=== PATIENT | male | born 1940 | race Caucasian/White ===

== ENCOUNTER → 2018-06-14 | Outpatient (CLI) | payer MEDICARE | END | disposition home or self-care (01) | LOC: LABWHC1 17:08 | PROVIDERS: ATTEND Internal Medicine Cardiovascular Disease | DX: R06.02 Shortness of breath (principal); I25.9 Chronic ischemic heart disease, unspecified | CPT/HCPCS: 36415; 71046; 83880; 85379 ==

== ENCOUNTER → 2018-06-14 | Outpatient (CLI) | payer MEDICARE ==
--- NOTE | 2018-06-15 07:06 | XR ---
EXAMINATION TYPE: XR chest 2V DATE OF EXAM: 06/14/2018 COMPARISON: Chest x-ray March 23, 2016. CT chest March 07, 2016. HISTORY: Shortness of breath TECHNIQUE: Frontal and lateral views of the chest are obtained. FINDINGS: There is patchy bibasilar opacities. No pleural effusion or pneumothorax is seen bilateral ly. The cardiac silhouette size is stable and upper limits of normal. The osseous structures are in tact. IMPRESSION: Patchy bibasilar atelectasis and/or infiltrate.
== END | disposition home or self-care (01) ==
LOC: RADXRYALE 16:19
PROVIDERS: ATTEND Internal Medicine Cardiovascular Disease
DX: R06.02 Shortness of breath (principal)
CPT/HCPCS: 71046

== ENCOUNTER → 2018-06-21 | Outpatient (CLI) | payer MEDICARE | END | disposition home or self-care (01) | LOC: LABWHC1 11:34 | PROVIDERS: ATTEND Internal Medicine Cardiovascular Disease | DX: I50.9 Heart failure, unspecified (principal) | CPT/HCPCS: 36415; 83880 ==

== ENCOUNTER → 2018-07-03 | Outpatient (CLI) | payer MEDICARE ==
[2018-07-03 23:07] LABS: Anion Gap 9.1 mmol/L (4.00-12.00); Calcium 8.8 mg/dL (8.7-10.3); Carbon Dioxide 26.9 mmol/L (21.6-31.8); Potassium 4.3 mmol/L (3.5-5.5)
== END | disposition home or self-care (01) ==
LOC: LABWHC1 13:31
PROVIDERS: ATTEND Nurse Practitioner Adult Health
DX: I10 Essential (primary) hypertension (principal)
CPT/HCPCS: 36415; 80048

== ENCOUNTER 2018-08-05 11:37 | Emergency (ER) | payer MEDICARE ==
[2018-08-05 11:54] VITALS: TEMP 97.6
[2018-08-05 12:19] LABS: Basophils % (A) 1 %; Eosinophils # (A) 0.1 k/uL (0-0.7); Eosinophils % (A) 2 %; HCT 38.6 % (39.0-53.0); HGB 12.2 gm/dL (13.0-17.5); Lymphocytes # (A) 0.8 k/uL (1.0-4.8); Lymphocytes % (A) 22 %; MCH 30.4 pg (25.0-35.0); MCHC 31.6 g/dL (31.0-37.0); MCV 96.2 fL (80.0-100.0); Mean Platelet Volume 7.9; Monocytes # (A) 0.3 k/uL (0-1.0); Monocytes % (A) 8 %; Neutrophils # (A) 2.2 k/uL (1.3-7.7); Neutrophils % (A) 63 %; Platelet Count 140 k/uL (150-450); RBC 4.02 m/uL (4.30-5.90); RDW 15.8 % (11.5-15.5); WBC 3.5 k/uL (3.8-10.6)
--- NOTE | 2018-08-05 12:19 | ED ---
General Adult HPI - General Chief complaint: Abdominal Pain Stated complaint: abdominal pain Time Seen by Provider: 08/05/18 11:51 Source: patient, RN notes reviewed Mode of arrival: ambulatory Limitations: no limitations - History of Present Illness Initial comments: 78 year old male presents to the emergency department for a chief complaint of abdominal pain. Patient states this has been ongoing for about 4 days. Patient states it is a sharp pain in his right lower quadrant. Patient states movement makes the pain worse and lying still alleviates the pain. Patient states he has had 2 normal bowel movements the past 3 days. Denies them at a cheesy or melena. Patient denies any nausea or vomiting. Patient states she was seen at [facility] for this but then referred here to the emergency department. He denies fevers or chills.Patient has no other complaints at this time including shortness of breath, chest pain, nausea or vomiting, headache, or visual changes. - Related Data Home Medications Medication Instructions Recorded Confirmed Multivitamin [Men's Multi-Vitamin] 1 tab PO DAILY 07/17/14 03/07/16 Tamsulosin HCl [Flomax] 0.4 mg PO DAILY 03/07/16 03/07/16 Previous Rx's Medication Instructions Recorded Aspirin EC [Ecotrin Low Dose] 81 mg PO DAILY #1 tablet. 10/28/13 Allergies Allergy/AdvReac Type Severity Reaction Status Date / Time clindamycin Allergy Intermediate Rash/Hives Verified 08/05/18 11:46 amoxicillin [Amoxicillin] Allergy Rash/Hives Verified 08/05/18 11:46 gentamicin [Gentamicin] Allergy Rash/Hives Verified 08/05/18 11:46 levofloxacin Allergy Rash/Hives Verified 08/05/18 11:46 sulfamethoxazole Allergy Rash/Hives Verified 08/05/18 11:46 [From Bactrim] trimethoprim [From Bactrim] Allergy Unknown Verified 08/05/18 11:46 vancomycin Allergy Unknown Verified 08/05/18 11:46 Review of Systems ROS Statement: Those systems with pertinent positive or pertinent negative responses have been documented in the HPI. ROS Other: All systems not noted in ROS Statement are negative. Past Medical History Past Medical History: Coronary Artery Disease (CAD), Heart Failure, Deep Vein Thrombosis (DVT), Hyperlipidemia, Osteoarthritis (OA), Pulmonary Embolus (PE), Skin Disorder, Sleep Apnea/CPAP/BIPAP, Vascular Disorder Additional Past Medical History / Comment(s): STENTS, SKIN CA, RHEUMATIC FEVER History of Any Multi-Drug Resistant Organisms: None Reported Past Surgical History: Adenoidectomy, Heart Catheterization With Stent, Tonsillectomy Additional Past Surgical History / Comment(s): skin CA removed from chin 2011, colonoscopy Past Anesthesia/Blood Transfusion Reactions: No Reported Reaction Date of Last Stent Placement:: 2007 Past Psychological History: No Psychological Hx Reported Smoking Status: Never smoker Past Alcohol Use History: None Reported Past Drug Use History: None Reported - Past Family History Father Family Medical History: Congestive Heart Failure (CHF), Coronary Artery Disease (CAD) Additional Family Medical History / Comment(s): CABG Mother Family Medical History: Congestive Heart Failure (CHF), Renal Disease Additional Family Medical History / Comment(s): ANEURSYM General Exam Limitations: no limitations General appearance: alert, in no apparent distress Head exam: Present: atraumatic, normocephalic, normal inspection Eye exam: Present: normal appearance, PERRL, EOMI. Absent: scleral icterus, conjunctival injection, periorbital swelling ENT exam: Present: normal exam, mucous membranes moist Neck exam: Present: normal inspection, full ROM. Absent: tenderness, meningismus, lymphadenopathy Respiratory exam: Present: normal lung sounds bilaterally. Absent: respiratory distress, wheezes, rales, rhonchi, stridor Cardiovascular Exam: Present: regular rate, normal rhythm, normal heart sounds. Absent: systolic murmur, diastolic murmur, rubs, gallop, clicks GI/Abdominal exam: Present: soft, tenderness (Tenderness in the right lower quadrant), normal bowel sounds. Absent: distended, guarding, rebound, rigid Expanded GI/Abdominal exam: Present: Rovsing's sign. Absent: heel tap sign, Stark's sign, tenderness at [place]'s Point Neurological exam: Present: alert, oriented X3, CN II-XII intact Psychiatric exam: Present: normal affect, normal mood Course Vital Signs 08/05/18 11:44 Temperature 97.6 F Pulse Rate 60 Respiratory 16 Rate Blood Pressure 136/73 O2 Sat by Pulse 97 Oximetry - Reevaluation(s) Reevaluation #1: 08/05/18 12:19 Patient refusing pain medicatiosn Medical Decision Making - Medical Decision Making 78-year-old male presents to the emergency department for a chief complaint of right lower quadrant abdominal pain. Patient is mildly tender on exam however nothing significant. No rebound tenderness. No guarding. Vitals are stable. CBC unremarkable, white count is somewhat low at 3.5. Hemoglobin 12.2 is likely patient's baseline as he was 12.93 years ago. CMP shows a creatinine of 1.43, patient given fluids. This is improved from 1.5 about 1 month ago. Discussed the case with test and turn up technician and radiologist Dr. Skaggs who recommends oral contrast versus IV contrast. Urine does not show any evidence of infection. I did discuss finding of renal cysts with patient however at this time I do not see an emergent cause for right lower quadrant abdominal pain. This could be musculoskeletal in nature as pain only occurs in patient moves. However he will follow up with primary care in 1-2 days. He will return hereif he has any wor sening symptoms. - Lab Data Result diagrams: 08/05/18 12:06 08/05/18 12:06 Lab Results 08/05/18 08/05/18 08/05/18 Range/Units 12:06 12:06 12:06 WBC 3.5 L (3.8-10.6) k/uL RBC 4.02 L (4.30-5.90) m/uL Hgb 12.2 L (13.0-17.5) gm/dL Hct 38.6 L (39.0-53.0) % MCV 96.2 (80.0-100.0) fL MCH 30.4 (25.0-35.0) pg MCHC 31.6 (31.0-37.0) g/dL RDW 15.8 H (11.5-15.5) % Plt Count 140 L (150-450) k/uL Neutrophils % 63 % Lymphocytes % 22 % Monocytes % 8 % Eosinophils % 2 % Basophils % 1 % Neutrophils # 2.2 (1.3-7.7) k/uL Lymphocytes # 0.8 L (1.0-4.8) k/uL Monocytes # 0.3 (0-1.0) k/uL Eosinophils # 0.1 (0-0.7) k/uL Basophils # 0.0 (0-0.2) k/uL Sodium 141 (137-145) mmol/L Potassium 4.9 (3.5-5.1) mmol/L Chloride 107 (98-107) mmol/L Carbon Dioxide 25 (22-30) mmol/L Anion Gap 9 mmol/L BUN 23 H (9-20) mg/dL Creatinine 1.43 H (0.66-1.25) mg/dL Est GFR (CKD-EPI)AfAm 55 (>60 ml/min/1.73 sqM) Est GFR (CKD-EPI)NonAf 48 (>60 ml/min/1.73 sqM) Glucose 99 (74-99) mg/dL Calcium 9.2 (8.4-10.2) mg/dL Total Bilirubin 0.9 (0.2-1.3) mg/dL AST 28 (17-59) U/L ALT 22 (21-72) U/L Alkaline Phosphatase 70 (38-126) U/L Total Protein 7.7 (6.3-8.2) g/dL Albumin 4.3 (3.5-5.0) g/dL Amylase 82 (30-110) U/L Lipase 257 (23-300) U/L Urine Color Yellow Urine Appearance Clear (Clear) Urine pH 6.5 (5.0-8.0) Ur Specific [place] 1.017 (1.001-1.035) Urine Protein 3+ H (Negative) Urine Glucose (UA) Negative (Negative) Urine Ketones Negative (Negative) Urine Blood Negative (Negative) Urine Nitrite Negative (Negative) Urine Bilirubin Negative (Negative) Urine Urobilinogen <2.0 (<2.0) mg/dL Ur Leukocyte Esterase Negative (Negative) Urine RBC 1 (0-5) /hpf Urine WBC <1 (0-5) /hpf Hyaline Casts 1 (0-2) /lpf Urine Mucus Rare H (None) /hpf Disposition Clinical Impression: Abdominal pain Disposition: HOME SELF-CARE Condition: Good Instructions (If sedation given, give patient instructions): Abdominal Pain (ED) Additional Instructions: Please follow up with primary care in 1-2 days. Please return here to the emergency department if you have any worsening symptoms. Is patient prescribed a controlled substance at d/c from ED?: No Referrals: Laura Talbert MD [Primary Care Provider] - 1-2 days Time of Disposition: 15:48
[2018-08-05 12:20] LABS: Appearance,Urine Clear (Clear); Bilirubin,Urine Negative (Negative); Blood,Urine Negative (Negative); Color,Urine Yellow; Glucose,Urine (UA) Negative (Negative); Hyaline Casts,Urine 1 /lpf (0-2); Ketones,Urine Negative (Negative); Leukocyte Esterase,Urine Negative (Negative); Mucus,Urine Rare /hpf; Nitrite,Urine Negative (Negative); PH, Urine 6.5 (5.0-8.0); Protein,Urine 3+ (Negative); RBC,Urine 1 /hpf (0-5); Specific Gravity,Urine 1.017 (1.001-1.035); Urobilinogen,Urine <2.0 mg/dL (<2.0); WBC,Urine <1 /hpf (0-5)
[2018-08-05 12:37] LABS: Albumin 4.3 g/dL (3.5-5.0); Calcium 9.2 mg/dL (8.4-10.2); Potassium 4.9 mmol/L (3.5-5.1); Total Bilirubin 0.9 mg/dL (0.2-1.3); Total Protein 7.7 g/dL (6.3-8.2)
[2018-08-05] MEDS ORDERED: SODIUM CHLORIDE 0.9% 1,000 ML IV STA (12:39)
--- NOTE | 2018-08-05 15:00 | CT ---
EXAMINATION TYPE: CT abdomen pelvis wo con DATE OF EXAM: 08/05/2018 COMPARISON: None HISTORY: Generalized abdominal pain CT DLP: 1015.4 mGycm Automated exposure control for dose reduction was used. TECHNIQUE: Helical acquisition of images was performed from the lung bases through the pelvis. There is oral contrast only. FINDINGS: There is subsegmental atelectasis at the lung bases. There is no pericardial effusion. Heart size is fairly normal. Liver shows no focal defect. Gallbladder appears normal. Bile ducts are not dilated. Stomach appears normal. Spleen and pancreas appear normal. There is no adrenal mass. Kidneys have normal size. There is no hydronephrosis. There are renal corti silvia cysts that measure up to 2 cm. There is no evidence of a solid renal mass. Ureters are not dilate d. There is no retroperitoneal adenopathy. Abdominal aorta is atheromatous. Bladder distends smoothly. There is no inguinal hernia. There is no free fluid in the pelvis. There i s no evidence of a pelvic mass. Prostate is large and measures 5.5 cm. The appendix appears normal. There is no mesenteric edema. There is no ascites or free air. There is no evidence of a bowel obstru ction. There are hypertrophic mild degenerative changes in the lumbar spine. I see no bony destructive proce ss. Bony pelvis is intact. There are degenerative cysts in the left and right acetabulum. IMPRESSION: RENAL CORTICAL CYSTS. NORMAL APPENDIX. I DO NOT SEE A CAUSE FOR ABDOMINAL PAIN.
[2018-08-05 16:20] VITALS: BP 153/85; PULSE 68; RESP 18
== END 2018-08-05 16:18 | disposition home or self-care (01) ==
LOC: EC 11:37
DX: R10.31 Right lower quadrant pain (principal); I50.9 Heart failure, unspecified; I25.10 Atherosclerotic heart disease of native coronary artery without angina pectoris; G47.30 Sleep apnea, unspecified; Z99.89 Dependence on other enabling machines and devices; Z85.828 Personal history of other malignant neoplasm of skin; Z86.718 Personal history of other venous thrombosis and embolism; Z86.711 Personal history of pulmonary embolism; Z79.899 Other long term (current) drug therapy; Z88.0 Allergy status to penicillin; Z88.1 Allergy status to other antibiotic agents; Z88.2 Allergy status to sulfonamides; Z95.5 Presence of coronary angioplasty implant and graft
CPT/HCPCS: 36415; 74176; 80053; 81001; 82150; 83690; 85025; 96360; 96361; 99284

== ENCOUNTER 2018-09-01 16:11 | Inpatient (IN) | payer MEDICARE ==
[2018-09-01] MEDS ORDERED: SODIUM CHLORIDE 0.9% 1,000 ML IV STA ×2 (16:23→17:50)
[2018-09-01] MEDS ORDERED: SODIUM CHLORIDE 0.9% 500 ML 500 ML IV STA ×2 (16:27→17:50)
--- NOTE | 2018-09-01 16:35 | ED ---
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 He denies any pain. He has had increased swelling in his right lower extremity compared to his usual amount. He was cold and shivering using Donald before arrival EMS found her called his son have a pulse ox 91% on room air was up to 97 on 2 L of oxygen. Accu-Chek was demonstrating adequate glucose. Right now he feels back to normal he denied any palpitations chest pain dysuria hematuria he does state he has some right-sided abdominal pain he's had this since about a week ago. He had workup for abdominal pain which is negative. Has right-sided pain. Additionally the patient was outside in the sun today working planting plants. He does state he had a Sunscreen on this may be part of what happened today. No other modifying factors currently MD Complaint: generalized weakness - Related Data Home Medications Medication Instructions Recorded Confirmed Advanced Nerve Support 1 tab PO DAILY 09/01/18 09/01/18 Ascorbic Acid [Vitamin C] 1,000 mg PO DAILY 09/01/18 09/01/18 Cholecalciferol [Vitamin D3 (25 5,000 unit PO DAILY 09/01/18 09/01/18 Mcg = 1000 Iu)] Florassist-Nasal 1 tab PO DAILY 09/01/18 09/01/18 Glucosamine/Chondr Saleh A Sod [Osteo 1 tab PO DAILY 09/01/18 09/01/18 Bi-Flex Caplet] Multivitamins, Thera [Multivitamin 1 tab PO DAILY 09/01/18 09/01/18 (formulary)] Naproxen Sodium [Aleve] 440 mg PO Q12HR PRN 09/01/18 09/01/18 [place] 500 mg PO DAILY 09/01/18 09/01/18 Allergies Allergy/AdvReac Type Severity Reaction Status Date / Time clindamycin Allergy Intermediate Rash/Hives Verified 09/01/18 17:36 amoxicillin [Amoxicillin] Allergy Rash/Hives Verified 09/01/18 17:36 gentamicin [Gentamicin] Allergy Rash/Hives Verified 09/01/18 17:36 levofloxacin Allergy Rash/Hives Verified 09/01/18 17:36 sulfamethoxazole Allergy Rash/Hives Verified 09/01/18 17:36 [From Bactrim] trimethoprim [From Bactrim] Allergy Unknown Verified 09/01/18 17:36 vancomycin Allergy Unknown Verified 09/01/18 17:36 Review of Systems ROS Statement: Those systems with pertinent positive or pertinent negative responses have been documented in the HPI. ROS Other: All systems not noted in ROS Statement are negative. Past Medical History Past Medical History: Coronary Artery Disease (CAD), Heart Failure, Deep Vein Thrombosis (DVT), Hyperlipidemia, Osteoarthritis (OA), Pulmonary Embolus (PE), Skin Disorder, Sleep Apnea/CPAP/BIPAP, Vascular Disorder Additional Past Medical History / Comment(s): STENTS, SKIN CA, RHEUMATIC FEVER History of Any Multi-Drug Resistant Organisms: None Reported Past Surgical History: Adenoidectomy, Heart Catheterization With Stent, Tonsillectomy Additional Past Surgical History / Comment(s): skin CA removed from chin 2011, colonoscopy Past Anesthesia/Blood Transfusion Reactions: No Reported Reaction Date of Last Stent Placement:: 2007 Past Psychological History: No Psychological Hx Reported Smoking Status: Never smoker Past Alcohol Use History: None Reported Past Drug Use History: None Reported - Past Family History Father Family Medical History: Congestive Heart Failure (CHF), Coronary Artery Disease (CAD) Additional Family Medical History / Comment(s): CABG Mother Family Medical History: Congestive Heart Failure (CHF), Renal Disease Additional Family Medical History / Comment(s): ANEURSYM General Exam - General Exam Comments Initial Comments: This is a well-developed well-nourished awake alert oriented 3 male General appearance: alert, in no apparent distress Head exam: Present: atraumatic, normocephalic, normal inspection Eye exam: Present: normal appearance, PERRL, EOMI. Absent: scleral icterus, conjunctival injection, periorbital swelling ENT exam: Present: mucous membranes dry Neck exam: Present: normal inspection, full ROM, other (Neurosurgery or bruits). Absent: tenderness, meningismus, lymphadenopathy Respiratory exam: Present: normal lung sounds bilaterally. Absent: respiratory distress, wheezes, rales, rhonchi, stridor Cardiovascular Exam: Present: regular rate, normal rhythm, normal heart sounds. Absent: systolic murmur, diastolic murmur, rubs, gallop, clicks GI/Abdominal exam: Present: soft, tenderness (Tenderness palpation over the right and left lower quadrants no overt guarding), normal bowel sounds. Absent: distended, guarding, rebound, rigid, bruit, pulsatile mass Rectal exam: Present: deferred Extremities exam: Present: normal inspection, full ROM, normal capillary refill, pedal edema (Edema more so on the right than the left.), other (Erythema seen to the right lower extremity with some increased localized temperature this is not too much different than normal per family members.). Absent: joint swelling, calf tenderness Back exam: Present: normal inspection Neurological exam: Present: alert, oriented X3, CN II-XII intact Psychiatric exam: Present: normal affect, normal mood Skin exam: Present: warm, dry, intact, normal color. Absent: rash Course Vital Signs 09/01/18 09/01/18 09/01/18 16:19 16:30 17:28 Temperature 99.6 F 102.5 F H Pulse Rate 121 H 124 H Respiratory 25 H 18 20 Rate Blood Pressure 115/68 O2 Sat by Pulse 93 L 98 Oximetry - Reevaluation(s) Reevaluation #1: 09/01/18 19:06 Reevaluation patient reveals improvement in his blood pressure positional changes. He did get IV fluids with a correct the pressure as well as a heart rate. He did develop a fever during his time here EKG Findings - EKG Results: EKG: interpreted by RENATO, sinus rhythm (Sinus tachycardia rate 119. Interval 154 QRS duration 76 QT since QTC 306/4:[address]-T wave changes) Medical Decision Making - Medical Decision Making I did discuss findings the patient and family members as well as Dr. Guerin patient will be admitted for anticoagulation scan is ordered. She'll be started on antibiotics at this time. - Lab Data Result diagrams: 09/01/18 16:42 09/01/18 16:42 Lab Results 09/01/18 09/01/18 09/01/18 Range/Units 16:42 16:42 16:42 WBC 11.8 H (3.8-10.6) k/uL RBC 3.75 L (4.30-5.90) m/uL Hgb 11.5 L (13.0-17.5) gm/dL Hct 35.6 L (39.0-53.0) % MCV 94.9 (80.0-100.0) fL MCH 30.7 (25.0-35.0) pg MCHC 32.3 (31.0-37.0) g/dL RDW 15.3 (11.5-15.5) % Plt Count 122 L (150-450) k/uL Neutrophils % (Manual) 74 % Band Neutrophils % 24 % Lymphocytes % (Manual) 2 % Metamyelocytes % 1 % Neutrophils # (Manual) 11.50 H (1.3-7.7) k/uL Lymphocytes # (Manual) 0.24 L (1.0-4.8) k/uL Metamyelocytes # (Man) 0.12 H (0) k/uL Nucleated RBCs 0 (0-0) /100 WBC Manual Slide Review Performed Toxic Vacuolation Present PT (9.0-12.0) sec INR (<1.2) APTT (22.0-30.0) sec D-Dimer (<0.60) mg/L FEU Sodium 140 (137-145) mmol/L Potassium 4.4 (3.5-5.1) mmol/L Chloride 108 H (98-107) mmol/L Carbon Dioxide 22 (22-30) mmol/L Anion Gap 10 mmol/L BUN 24 H (9-20) mg/dL Creatinine 1.59 H (0.66-1.25) mg/dL Est GFR (CKD-EPI)AfAm 48 (>60 ml/min/1.73 sqM) Est GFR (CKD-EPI)NonAf 42 (>60 ml/min/1.73 sqM) Glucose 104 H (74-99) mg/dL Plasma Lactic Acid Pablo (0.7-2.0) mmol/L Calcium 8.9 (8.4-10.2) mg/dL Magnesium 1.6 (1.6-2.3) mg/dL Total Bilirubin 0.9 (0.2-1.3) mg/dL AST 27 (17-59) U/L ALT 15 L (21-72) U/L Alkaline Phosphatase 60 (38-126) U/L Creatine Kinase 55 (55-170) U/L Troponin I (0.000-0.034) ng/mL NT-Pro-B Natriuret Pep pg/mL Total Protein 6.6 (6.3-8.2) g/dL Albumin 3.6 (3.5-5.0) g/dL Urine Color Yellow Urine Appearance Clear (Clear) Urine pH 5.5 (5.0-8.0) Ur Specific [place] 1.018 (1.001-1.035) Urine Protein 2+ H (Negative) Urine Glucose (UA) Negative (Negative) Urine Ketones Negative (Negative) Urine Blood Negative (Negative) Urine Nitrite Negative (Negative) Urine Bilirubin Negative (Negative) Urine Urobilinogen <2.0 (<2.0) mg/dL Ur Leukocyte Esterase Negative (Negative) Urine RBC 1 (0-5) /hpf Urine WBC 2 (0-5) /hpf Ur Squamous Epith Cells 1 (0-4) /hpf Hyaline Casts 7 H (0-2) /lpf Urine Mucus Occasional H (None) /hpf 09/01/18 09/01/18 09/01/18 Range/Units 16:42 16:42 16:42 WBC (3.8-10.6) k/uL RBC (4.30-5.90) m/uL Hgb (13.0-17.5) gm/dL Hct (39.0-53.0) % MCV (80.0-100.0) fL MCH (25.0-35.0) pg MCHC (31.0-37.0) g/dL RDW (11.5-15.5) % Plt Count (150-450) k/uL Neutrophils % (Manual) % Band Neutrophils % % Lymphocytes % (Manual) % Metamyelocytes % % Neutrophils # (Manual) (1.3-7.7) k/uL Lymphocytes # (Manual) (1.0-4.8) k/uL Metamyelocytes # (Man) (0) k/uL Nucleated RBCs (0-0) /100 WBC Manual Slide Review Toxic Vacuolation PT 10.4 (9.0-12.0) sec INR 1.0 (<1.2) APTT 22.6 (22.0-30.0) sec D-Dimer (<0.60) mg/L FEU Sodium (137-145) mmol/L Potassium (3.5-5.1) mmol/L Chloride (98-107) mmol/L Carbon Dioxide (22-30) mmol/L Anion Gap mmol/L BUN (9-20) mg/dL Creatinine (0.66-1.25) mg/dL Est GFR (CKD-EPI)AfAm (>60 ml/min/1.73 sqM) Est GFR (CKD-EPI)NonAf (>60 ml/min/1.73 sqM) Glucose (74-99) mg/dL Plasma Lactic Acid Pablo 2.4 H* (0.7-2.0) mmol/L Calcium (8.4-10.2) mg/dL Magnesium (1.6-2.3) mg/dL Total Bilirubin (0.2-1.3) mg/dL AST (17-59) U/L ALT (21-72) U/L Alkaline Phosphatase (38-126) U/L Creatine Kinase (55-170) U/L Troponin I (0.000-0.034) ng/mL NT-Pro-B Natriuret Pep 480 pg/mL Total Protein (6.3-8.2) g/dL Albumin (3.5-5.0) g/dL Urine Color Urine Appearance (Clear) Urine pH (5.0-8.0) Ur Specific [place] (1.001-1.035) Urine Protein (Negative) Urine Glucose (UA) (Negative) Urine Ketones (Negative) Urine Blood (Negative) Urine Nitrite (Negative) Urine Bilirubin (Negative) Urine Urobilinogen (<2.0) mg/dL Ur Leukocyte Esterase (Negative) Urine RBC (0-5) /hpf Urine WBC (0-5) /hpf Ur Squamous Epith Cells (0-4) /hpf Hyaline Casts (0-2) /lpf Urine Mucus (None) /hpf 09/01/18 09/01/18 Range/Units 16:42 16:42 WBC (3.8-10.6) k/uL RBC (4.30-5.90) m/uL Hgb (13.0-17.5) gm/dL Hct (39.0-53.0) % MCV (80.0-100.0) fL MCH (25.0-35.0) pg MCHC (31.0-37.0) g/dL RDW (11.5-15.5) % Plt Count (150-450) k/uL Neutrophils % (Manual) % Band Neutrophils % % Lymphocytes % (Manual) % Metamyelocytes % % Neutrophils # (Manual) (1.3-7.7) k/uL Lymphocytes # (Manual) (1.0-4.8) k/uL Metamyelocytes # (Man) (0) k/uL Nucleated RBCs (0-0) /100 WBC Manual Slide Review Toxic Vacuolation PT (9.0-12.0) sec INR (<1.2) APTT (22.0-30.0) sec D-Dimer 3.88 H (<0.60) mg/L FEU Sodium (137-145) mmol/L Potassium (3.5-5.1) mmol/L Chloride (98-107) mmol/L Carbon Dioxide (22-30) mmol/L Anion Gap mmol/L BUN (9-20) mg/dL Creatinine (0.66-1.25) mg/dL Est GFR (CKD-EPI)AfAm (>60 ml/min/1.73 sqM) Est GFR (CKD-EPI)NonAf (>60 ml/min/1.73 sqM) Glucose (74-99) mg/dL Plasma Lactic Acid Pablo (0.7-2.0) mmol/L Calcium (8.4-10.2) mg/dL Magnesium (1.6-2.3) mg/dL Total Bilirubin (0.2-1.3) mg/dL AST (17-59) U/L ALT (21-72) U/L Alkaline Phosphatase (38-126) U/L Creatine Kinase (55-170) U/L Troponin I <0.012 (0.000-0.034) ng/mL NT-Pro-B Natriuret Pep pg/mL Total Protein (6.3-8.2) g/dL Albumin (3.5-5.0) g/dL Urine Color Urine Appearance (Clear) Urine pH (5.0-8.0) Ur Specific [place] (1.001-1.035) Urine Protein (Negative) Urine Glucose (UA) (Negative) Urine Ketones (Negative) Urine Blood (Negative) Urine Nitrite (Negative) Urine Bilirubin (Negative) Urine Urobilinogen (<2.0) mg/dL Ur Leukocyte Esterase (Negative) Urine RBC (0-5) /hpf Urine WBC (0-5) /hpf Ur Squamous Epith Cells (0-4) /hpf Hyaline Casts (0-2) /lpf Urine Mucus (None) /hpf - Radiology Data Radiology results: report reviewed (I did review the imaging and reports x-rays negative for acute findings ultrasound is positive for DVT in right lower extremity.), image reviewed Critical Care Time Critical Care Time: Yes Critical Care Time: 31 minutes of critical care time which includes initial presentation with history physical labs x-rays several reevaluation the patient. Discussion the patient family and several occasions. Discussion with the admitting physician review of old charting was available admission orders and documentation of the above Disposition Clinical Impression: Deep vein thrombosis (DVT) of right lower extremity, Febrile illness, acute, Dehydration, Renal insufficiency syndrome, Cellulitis Disposition: ADMITTED IP TO THIS [facility] Condition: Fair Referrals: Laura Talbert MD [Primary Care Provider] - 1-2 days
[2018-09-01 17:00] LABS: HCT 35.6 % (39.0-53.0); HGB 11.5 gm/dL (13.0-17.5); MCH 30.7 pg (25.0-35.0); MCHC 32.3 g/dL (31.0-37.0); MCV 94.9 fL (80.0-100.0); Mean Platelet Volume 7.3; Platelet Count 122 k/uL (150-450); RBC 3.75 m/uL (4.30-5.90); RDW 15.3 % (11.5-15.5); WBC 11.8 k/uL (3.8-10.6)
[2018-09-01 17:04] LABS: Albumin 3.6 g/dL (3.5-5.0); Calcium 8.9 mg/dL (8.4-10.2); Magnesium 1.6 mg/dL (1.6-2.3); Potassium 4.4 mmol/L (3.5-5.1); Total Bilirubin 0.9 mg/dL (0.2-1.3); Total Protein 6.6 g/dL (6.3-8.2)
[2018-09-01 17:06] LABS: Appearance,Urine Clear (Clear); Bilirubin,Urine Negative (Negative); Blood,Urine Negative (Negative); Color,Urine Yellow; Glucose,Urine (UA) Negative (Negative); Hyaline Casts,Urine 7 /lpf (0-2); Ketones,Urine Negative (Negative); Leukocyte Esterase,Urine Negative (Negative); Mucus,Urine Occasional /hpf; Nitrite,Urine Negative (Negative); PH, Urine 5.5 (5.0-8.0); Protein,Urine 2+ (Negative); RBC,Urine 1 /hpf (0-5); Specific Gravity,Urine 1.018 (1.001-1.035); Squamous Epithelial Cell,Urine 1 /hpf (0-4); Urobilinogen,Urine <2.0 mg/dL (<2.0); WBC,Urine 2 /hpf (0-5)
[2018-09-01 17:11] LABS: Partial Thromboplastin Time 22.6 sec (22.0-30.0); Prothrombin Time 10.4 sec (9.0-12.0)
--- NOTE | 2018-09-01 17:33 | XR ---
EXAMINATION TYPE: XR chest 2V DATE OF EXAM: 09/01/2018 COMPARISON: 06/14/2018 HISTORY: Short of breath TECHNIQUE: Frontal and lateral views of the chest are obtained. FINDINGS: Heart and mediastinum are normal. Lungs are clear. Costophrenic angles are clear. Bony tho rax is intact. There are chest leads. IMPRESSION: No active cardiopulmonary disease. Normal heart. No change.
[2018-09-01 17:35] LABS: Band Neutrophils % 24 %; Lymphocytes # (M) 0.24 k/uL (1.0-4.8); Metamyelocytes # (M) 0.12 k/uL (0); Metamyelocytes % 1 %; Neutrophils % (M) 74 %; Nucleated Red Blood Cells 0 /100 WBC (0-0); Total Cells Counted 200; Toxic Vacuolation Present
[2018-09-01] MEDS ORDERED: ACETAMINOPHEN TAB 500 MG TAB PO STA (17:54)
--- NOTE | 2018-09-01 18:49 | US ---
EXAMINATION TYPE: US venous doppler duplex LE RT DATE OF EXAM: 09/01/2018 6:39 PM COMPARISON: CLINICAL HISTORY: Pain. right leg swelling since thanksgiving. PE x 3 years ago per patient. No marilyn n. SIDE PERFORMED: Right TECHNIQUE: The lower extremity deep venous system is examined utilizing real time linear array sonog aylsia with graded compression, doppler sonography and color-flow sonography. VESSELS IMAGED: External Iliac Vein (EIV) Common Femoral Vein Deep Femoral Vein Greater Saphenous Vein * Femoral Vein Popliteal Vein Small Saphenous Vein *- not visualized Proximal Calf Veins- not well visualized (* superficial vessels) suboptimal visualization due to edema Right Leg: Appears POSITIVE for DVT from Femoral vein to Proximal calf veins. Thready flow and part ial compressions. 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
[2018-09-01] MEDS ORDERED: cefTRIAXone IN SWFI 1,000 MG/10 ML SYRINGE IVP STA (19:09)
[2018-09-01] MEDS ORDERED: ACETAMINOPHEN TAB 325 MG TAB PO PRN (19:10)
[2018-09-01] MEDS ORDERED: NALOXONE 0.4 MG/ML 1 ML VIAL IV PRN (19:10)
[2018-09-01] MEDS ORDERED: HEPARIN SODIUM,PORCINE 5,000 UNIT/ML 1 ML VIAL IV PRN (19:12)
[2018-09-01] MEDS ORDERED: HEPARIN SODIUM,PORCINE 10,000 UNIT/ML 1 ML VIAL IV ONE (19:12)
[2018-09-01] MEDS: HEPARIN SOD,PORK IN 0.45% NACL 25,000 UNIT in 0.45% NACL 1 250ML.BAG IV SCH (20:11)
--- NOTE | 2018-09-01 21:18 | NM ---
EXAMINATION TYPE: NM pul vent and perfuse DATE OF EXAM: 09/01/2018 COMPARISON: 03/23/2016 HISTORY: TECHNIQUE: Utilizing inhalation of 68.2 mCi Tc 99m DTPA aerosol and intravenous injection of 5.3 mCi of Tc 99m MAA, ventilation and perfusion images are acquired post injection in multiple projections. FINDINGS: There is mild clumping of the tracer on the ventilation images centrally. There is matching ventilati on/perfusion defect at the lateral left lung base. There is no mismatch. There is no segmental type d efect. IMPRESSION: There is evidence of airway disease. Matching defect left lower lobe. There is a low probability of p ulmonary embolism. No adverse change overall compared to last exam.
[2018-09-01] MEDS: FAMOTIDINE 20 MG TAB PO SCH (22:03)
[2018-09-01 22:14] VITALS: BMI 35.4
[2018-09-01] MEDS ORDERED: TEMAZEPAM 15 MG CAP PO PRN (22:49)
[2018-09-01] MEDS ORDERED: ALPRAZolam 0.25 MG TAB PO PRN (22:49)
[2018-09-02] MEDS ORDERED: SODIUM CHLORIDE 0.9% 500 ML 500 ML IV ONE (00:14)
--- NOTE | 2018-09-02 06:30 | HP ---
HISTORY AND PHYSICAL DATE OF SERVICE: 09/01/2018 CHIEF COMPLAINT: Right leg swelling and as well as generalized weakness and fever. HISTORY OF PRESENT ILLNESS: This 78-year-old gentleman with a past medical history of multiple medical problems including history of coronary disease, history of DVT, CHF, history of hyperlipidemia, history of pulmonary embolism, history of vascular disorder, history of adenoidectomy, CAD, stent being followed by Dr. Talbert in the outpatient setting, had a previous massive pulmonary embolism in the right pulmonary artery. Subsequently the patient also had right leg DVT at that time. The patient subsequently was started on Xarelto, which the patient has stopped 2 years ago because the patient is concerned about complications. Currently the patient has multiple complaints and generalized weakness, right leg pain. Patient apparently passed out and had a fall also. The patient came to [facility]. The patient is also running fever also. The patient had multiple evaluations and white count is 11.8 and lactic acid is 2.4. Creatinine is 1.59. UA was noted. The patient also had multiple evaluations including venous ultrasound which showed possibly right leg acute DVT and the patient was admitted for further evaluation and treatment. There is no history of fever, rigors. No history of headache, loss of consciousness, seizures. The patient also had pulmonary perfusion scan which showed low probability V/Q scan. There is no history of headache, loss of consciousness or seizures. PAST MEDICAL HISTORY: History of CAD, CHF, DVT, hyperlipidemia, history of DJD, pulmonary embolism, possible endocarditis, CAD stent. MEDICATION: Home medications prior to admission include: 1. Saw palmetto 500 mg p.o. daily. 2. Aleve 440 mg p.o. b.i.d. 3. Osteo Bi-Flex 1 tablet p.o. daily. 4. Fioricet 1 tablet p.o. daily. 5. Vitamin D3 5000 daily. 6. Advanced support 1 tablet p.o. daily. 7. Multivitamins one p.o. daily. 8. Vitamin C 1000 mg p.o. daily. ALLERGIES: CLINDAMYCIN, AMOXICILLIN, GENTAMICIN, LEVAQUIN, SULFAMETHOXAZOLE, TRIMETHOPRIM, VANCOMYCIN. FAMILY HISTORY: History of CHF, CAD, hemodialysis. SOCIAL HISTORY: No history of smoking. No history of alcohol intake. REVIEW OF SYSTEMS: ENT: No diminished vision. No diminished hearing. CARDIOVASCULAR: No angina or palpitations. RESPIRATORY: As mentioned earlier. GI no nausea or vomiting. no dysuria. NERVOUS SYSTEM: No numbness, weakness. ALLERGIES/IMMUNOLOGY: No asthma or hayfever. MUSCULOSKELETAL as mentioned earlier. HEMATOLOGY/ONCOLOGY: As mentioned earlier. ENDOCRINE: No history of diabetes or hypothyroid. CONSTITUTIONAL: As mentioned earlier. DERMATOLOGY: Negative. RHEUMATOLOGY: Negative. PSYCHIATRY: As mentioned earlier. PHYSICAL EXAMINATION: GENERAL: Alert oriented x3. VITAL SIGNS: Pulse 78, blood pressure 87/40, respiration 18, temperature 98.3, pulse ox 98% on 2 L. HEENT: Conjunctivae normal. Oral mucosa moist. NECK is no jugular venous distention. No carotid bruit. No lymph node enlargement. CARDIOVASCULAR: S1, S2 muffled. No S3, no S4. RESPIRATORY: Breath sounds diminished in the bases. A few scattered rhonchi and crackles. ABDOMEN: Soft, nontender. No mass palpable. LEGS: Right leg swelling present. NERVOUS SYSTEM: Higher functions as mentioned earlier. Moves all 4 limbs. No focal motor or sensory deficits. LYMPHATICS: No lymph nodes palpable in the neck, axillae or groin. SKIN no ulcer, rash or bleeding. JOINTS: No active deforming arthropathy. LABS: WBC 11.2, hemoglobin 11.5, otherwise platelets 122, creatinine 1.59. Plasma lactic acid 2.4. ASSESSMENT: 1. Right leg swelling, acute right leg deep vein thrombosis. 2. Generalized weakness and fever and relative hypotension possible sepsis. 3. Renal failure possible acute renal failure with acute tubular necrosis. 4. Elevated plasma lactic acid. 5. Elevated D-dimer with no evidence of pulmonary embolism. 6. Increased WBC. 7. Anemia. 8. Thrombocytopenia. 9. History of pulmonary embolism and as well as deep vein thrombosis. 10.History of coronary artery disease stent. 11.History of hyperlipidemia. 12.History of degenerative joint disease. 13.History of sleep apnea. 14.History of adenoidectomy. 15.Obesity with body mass of 35.4. 16.NO CODE NO CPR, NO VENT. RECOMMENDATIONS AND DISCUSSION: This 78-year-old gentleman who presented with multiple complex medical issues, we will monitor the patient closely, continue the current medications, management and symptomatic treatment. We will initiate IV heparin. Broad-spectrum IV antibiotics. Follow the cultures. I would also recommend IV boluses. Hold blood pressure medications and I would also recommend consultation with Hematology/Oncology and as well as Dr. Johnson of Infectious Disease. The prognosis guarded. Further recommendations to follow. A baseline 2D echo also will be ordered. Further recommendations to follow. Prognosis guarded. A copy of dictation being forwarded to Dr. Talbert, who is the primary physician. MMODL / KINGSN: [id number] / MTDD
[2018-09-02 08:30] LABS: Anisocytosis Slight; Basophils # (A) 0.1 k/uL (0-0.2); Basophils % (A) 1 %; Eosinophils # (A) 0.2 k/uL (0-0.7); Eosinophils % (A) 2 %; HCT 30.7 % (39.0-53.0); HGB 10.3 gm/dL (13.0-17.5); Lymphocytes # (A) 0.2 k/uL (1.0-4.8); Lymphocytes % (A) 2 %; MCHC 33.5 g/dL (31.0-37.0); MCV 95.5 fL (80.0-100.0); Mean Platelet Volume 8.3; Monocytes # (A) 0.3 k/uL (0-1.0); Monocytes % (A) 2 %; Neutrophils # (A) 10.4 k/uL (1.3-7.7); Neutrophils % (A) 93 %; Platelet Count 106 k/uL (150-450); RBC 3.21 m/uL (4.30-5.90); RDW 16.3 % (11.5-15.5); WBC 11.2 k/uL (3.8-10.6)
[2018-09-02 08:58] LABS: Calcium 7.9 mg/dL (8.4-10.2); Potassium 4.8 mmol/L (3.5-5.1)
[2018-09-02] MEDS ORDERED: NON-FORMULARY DRUG (Saw Palmetto [Saw Palmetto] 500 MG) PO SCH (09:00)
[2018-09-02] MEDS ORDERED: NON-FORMULARY DRUG (Glucosamine/Chondr Su A Sod [Osteo Bi-Flex Caplet] 1 TAB) PO SCH (09:00)
[2018-09-02] MEDS ORDERED: cefTRIAXone IN SWFI 1,000 MG/10 ML SYRINGE IVP SCH (09:00)
[2018-09-02] MEDS ORDERED: [UNRECOGNIZED DRUG - OTHER] PO SCH (09:00)
[2018-09-02] MEDS ORDERED: [UNRECOGNIZED DRUG - OTHER] PO SCH (09:00)
[2018-09-02] MEDS: HEPARIN SOD,PORK IN 0.45% NACL 25,000 UNIT in 0.45% NACL 1 250ML.BAG IV SCH ×3 (09:31→23:52)
[2018-09-02] MEDS: FAMOTIDINE 20 MG TAB PO SCH (09:32)
[2018-09-02] MEDS: MULTIVITAMINS, THERA 1 EACH TAB PO SCH (09:32)
[2018-09-02] MEDS: ASCORBIC ACID 500 MG TAB PO SCH (09:32)
[2018-09-02] MEDS: CHOLECALCIFEROL 1,000 UNIT TAB PO SCH (09:33)
[2018-09-02 12:18] LABS: Glucose,Whole Blood 109 mg/dL (75-99)
[2018-09-02] MEDS ORDERED: MAGNESIUM HYDROXIDE 2,400 MG/10 ML CUP PO PRN (12:32)
--- NOTE | 2018-09-02 14:02 | XR ---
EXAMINATION TYPE: XR chest 1V portable DATE OF EXAM: 09/02/2018 HISTORY: chf. REFERENCE: Previous study dated 09/01/2018. FINDINGS: Heart size upper limits of normal. The lungs are clear. Pleural spaces are clear. IMPRESSION: BORDERLINE CARDIOMEGALY.
--- NOTE | 2018-09-02 15:14 | P.CONS ---
History of Present Illness - Reason for Consult Consult date: 09/02/18 RLE DVT, prior history DVT/PE - History of Present Illness The patient is a 78-year-old white male with multiple medical problems. The patient was admitted this time, because he states that after working in his yard in the son, he felt quite weak and tired. He subsequently became quite shaky and felt as if he was going to pass out. According to his , they're daughter noticed that his lips in the tips of his finger seem to be "blue". EMS was called and he was brought to the emergency room. Cardiac workup was n egative. Patient was ultimately found to have a fever of 102+. He was therefore admitted for further management. He had a prior history of DVT and PE due to which he had a V/Q scan done. This showed low probability for PE. He did have right lower extremity swelling, which has been chronic since a prior DVT in 10/07. Doppler's indicated DVT involving the femoral down into the popliteal veins. This appeared to be chronic with partial compression and thready flow. The patient was started on IV heparin and consult placed. Regarding his prior history, the patient was admitted in 10/07 for chest pain and shortness of breath and was found to have a major pulmonary embolism in the right lung. At that time he was also found to have a right femoral DVT. The patient was treated with Xarelto for several months, but then stopped it as he was concerned about side effects. The patient had repeat imaging in 03/11, including CTA and Doppler showed resolution of both the PE and DVT. He did not recall any provoking events for his prior DVT, or for this present one The patient is a somewhat poor historian, in significant amount of the history was obtained from his . She stated that while the right lower extremity does tend to be somewhat bigger since 2013, it had been more swollen chronically since about 02/11. The patient had come into the emergency room in early 08/12 complaining of right lower quadrant abdominal pain. CT of the abdomen and pelvis was negative at the time and he was able to be discharged. Review of Systems Constitutional: Reports chills, Reports fever, Reports weakness Eyes: denies blurred vision, denies pain Ears: deny: decreased hearing, ear discharge, earache, tinnitus Ears, nose, mouth and throat: Denies headache, Denies sore throat Cardiovascular: Reports shortness of breath Respiratory: Reports dyspnea Gastrointestinal: Denies abdominal pain, Denies diarrhea, Denies nausea, Denies vomiting Genitourinary: Reports as per HPI Musculoskeletal: Reports as per HPI (Chronic right lower extremity swelling, with increase since 02/11) Integumentary: Denies pruritus, Denies rash Neurological: Reports weakness Psychiatric: Denies anxiety, Denies depression Endocrine: Denies fatigue, Denies weight change Hematologic/Lymphatic: Reports as per HPI, Reports thrombophilia Past Medical History Past Medical History: Coronary Artery Disease (CAD), Heart Failure, Deep Vein Thrombosis (DVT), Hyperlipidemia, Osteoarthritis (OA), Pulmonary Embolus (PE), Skin Disorder, Sleep Apnea/CPAP/BIPAP, Vascular Disorder Additional Past Medical History / Comment(s): STENTS, SKIN CA, RHEUMATIC FEVER , abdominal hernia History of Any Multi-Drug Resistant Organisms: None Reported Past Surgical History: Adenoidectomy, Heart Catheterization With Stent, Tonsillectomy Additional Past Surgical History / Comment(s): skin CA removed from chin 2011, colonoscopy Past Anesthesia/Blood Transfusion Reactions: No Reported Reaction Date of Last Stent Placement:: 2007 Past Psychological History: No Psychological Hx Reported Smoking Status: Never smoker Past Alcohol Use History: None Reported Past Drug Use History: None Reported - Past Family History Father Family Medical History: Congestive Heart Failure (CHF), Coronary Artery Disease (CAD) Additional Family Medical History / Comment(s): CABG Mother Family Medical History: Congestive Heart Failure (CHF), Renal Disease Additional Family Medical History / Comment(s): dialysis patient Medications and Allergies Home Medications Medication Instructions Recorded Confirmed Type Advanced Nerve Support 1 tab PO DAILY 09/01/18 09/01/18 History Ascorbic Acid [Vitamin C] 1,000 mg PO DAILY 09/01/18 09/01/18 History Cholecalciferol [Vitamin D3 (25 5,000 unit PO DAILY 09/01/18 09/01/18 History Mcg = 1000 Iu)] Florassist-Nasal 1 tab PO DAILY 09/01/18 09/01/18 History Glucosamine/Chondr Saleh A Sod [Osteo 1 tab PO DAILY 09/01/18 09/01/18 History Bi-Flex Caplet] Multivitamins, Thera [Multivitamin 1 tab PO DAILY 09/01/18 09/01/18 History (formulary)] Naproxen Sodium [Aleve] 440 mg PO Q12HR PRN 09/01/18 09/01/18 History Saw Nyack 500 mg PO DAILY 09/01/18 09/01/18 History Allergies Allergy/AdvReac Type Severity Reaction Status Date / Time clindamycin Allergy Intermediate Rash/Hives Verified 09/01/18 17:36 amoxicillin [Amoxicillin] Allergy Rash/Hives Verified 09/01/18 17:36 gentamicin [Gentamicin] Allergy Rash/Hives Verified 09/01/18 17:36 levofloxacin Allergy Rash/Hives Verified 09/01/18 17:36 sulfamethoxazole Allergy Rash/Hives Verified 09/01/18 17:36 [From Bactrim] trimethoprim [From Bactrim] Allergy Unknown Verified 09/01/18 17:36 vancomycin Allergy Unknown Verified 09/01/18 17:36 Physical Exam Vitals: Vital Signs Temp Pulse Pulse Resp BP BP Pulse Ox 09/02/18 11:50 97.9 F 68 18 100/58 09/02/18 07:50 98.3 F 76 18 90/50 09/02/18 04:00 100.2 F H 88 18 95/56 09/02/18 00:15 101/64 09/01/18 23:51 78 18 09/01/18 23:44 98.3 F 78 18 87/48 09/01/18 22:07 98.9 F 78 18 81/56 09/01/18 20:00 104 H 29 H 110/77 95 09/01/18 19:50 107 H 22 115/88 96 09/01/18 19:40 109 H 17 100/68 96 09/01/18 19:30 110 H 24 106/54 95 09/01/18 19:20 106 H 20 106/54 96 09/01/18 19:10 107 H 22 106/54 97 09/01/18 19:00 111 H 20 103/55 99 09/01/18 18:50 109 H 20 103/55 75 L 09/01/18 18:40 111 H 21 103/55 82 L 09/01/18 18:30 111 H 21 115/58 100 09/01/18 18:20 109 H 20 115/58 95 09/01/18 18:10 113 H 115/58 09/01/18 18:00 112 H 104/58 98 09/01/18 17:50 112 H 22 104/58 98 09/01/18 17:40 113 H 25 H 104/58 98 09/01/18 17:30 113 H 30 H 107/57 98 09/01/18 17:28 102.5 F H 124 H 20 98 09/01/18 17:20 114 H 28 H 107/57 100 09/01/18 17:10 107/57 09/01/18 17:00 118 H 27 H 115/68 09/01/18 16:50 118 H 29 H 115/68 95 09/01/18 16:40 118 H 30 H 115/68 98 09/01/18 16:30 125 H 28 H 09/01/18 16:27 23 09/01/18 16:19 99.6 F 121 H 25 H 115/68 93 L Intake and Output 09/02/18 09/02/18 09/02/18 06:59 14:59 22:59 Intake Total 127.041 692.858 Output Total 150 100 Balance -22.959 592.858 Intake: Intake, IV Titration 127.041 212.858 Amount Heparin Sod,Pork in 0.45% 127.041 162.858 NaCl 25,000 unit In 0.45 % NaCl 1 250ml.bag @ 18 UNITS/KG/HR 19.595 mls/hr IV .[id number] HANNA Rx#: [id number] cefTRIAXone 1 gm In 50 Sodium Chloride 0.9% 50 ml @ 100 mls/hr IVPB Q24HR HANNA Rx#:[id number] Oral 480 Output: Urine 150 100 Other: # Voids 1 Weight 114.2 kg - Constitutional General appearance: no acute distress - EENT Eyes: EOMI, PERRLA ENT: hearing grossly normal, normal oropharynx - Neck Neck: no lymphadenopathy - Respiratory Respiratory: bilateral: diminished - Cardiovascular Rhythm: regular Heart sounds: normal: S1, S2 - Gastrointestinal General gastrointestinal: normal bowel sounds, soft - Integumentary Integumentary: normal - Neurologic Neurologic: CNII-XII intact - Musculoskeletal Musculoskeletal: generalized weakness, strength equal bilaterally - Psychiatric Psychiatric: A&O x's 3, appropriate affect Results CBC & Chem 7: 09/02/18 08:01 09/02/18 08:01 Labs: Abnormal Lab Results - Last 24 Hours (Table) 09/01/18 09/01/18 09/01/18 Range/Units 16:42 16:42 16:42 WBC 11.8 H (3.8-10.6) k/uL RBC 3.75 L (4.30-5.90) m/uL Hgb 11.5 L (13.0-17.5) gm/dL Hct 35.6 L (39.0-53.0) % RDW (11.5-15.5) % Plt Count 122 L (150-450) k/uL Neutrophils # (1.3-7.7) k/uL Neutrophils # (Manual) 11.50 H (1.3-7.7) k/uL Lymphocytes # (1.0-4.8) k/uL Lymphocytes # (Manual) 0.24 L (1.0-4.8) k/uL Metamyelocytes # (Man) 0.12 H (0) k/uL APTT (22.0-30.0) sec D-Dimer (<0.60) mg/L FEU Chloride 108 H (98-107) mmol/L Carbon Dioxide (22-30) mmol/L BUN 24 H (9-20) mg/dL Creatinine 1.59 H (0.66-1.25) mg/dL Glucose 104 H (74-99) mg/dL POC Glucose (mg/dL) (75-99) mg/dL Plasma Lactic Acid Pablo (0.7-2.0) mmol/L Calcium (8.4-10.2) mg/dL ALT 15 L (21-72) U/L Urine Protein 2+ H (Negative) Hyaline Casts 7 H (0-2) /lpf Urine Mucus Occasional H (None) /hpf 09/01/18 09/01/18 09/02/18 Range/Units 16:42 16:42 01:50 WBC (3.8-10.6) k/uL RBC (4.30-5.90) m/uL Hgb (13.0-17.5) gm/dL Hct (39.0-53.0) % RDW (11.5-15.5) % Plt Count (150-450) k/uL Neutrophils # (1.3-7.7) k/uL Neutrophils # (Manual) (1.3-7.7) k/uL Lymphocytes # (1.0-4.8) k/uL Lymphocytes # (Manual) (1.0-4.8) k/uL Metamyelocytes # (Man) (0) k/uL APTT 89.0 H (22.0-30.0) sec D-Dimer 3.88 H (<0.60) mg/L FEU Chloride (98-107) mmol/L Carbon Dioxide (22-30) mmol/L BUN (9-20) mg/dL Creatinine (0.66-1.25) mg/dL Glucose (74-99) mg/dL POC Glucose (mg/dL) (75-99) mg/dL Plasma Lactic Acid Pablo 2.4 H* (0.7-2.0) mmol/L Calcium (8.4-10.2) mg/dL ALT (21-72) U/L Urine Protein (Negative) Hyaline Casts (0-2) /lpf Urine Mucus (None) /hpf 09/02/18 09/02/18 09/02/18 Range/Units 08:01 08:01 08:01 WBC 11.2 H (3.8-10.6) k/uL RBC 3.21 L (4.30-5.90) m/uL Hgb 10.3 L (13.0-17.5) gm/dL Hct 30.7 L (39.0-53.0) % RDW 16.3 H (11.5-15.5) % Plt Count 106 L (150-450) k/uL Neutrophils # 10.4 H (1.3-7.7) k/uL Neutrophils # (Manual) (1.3-7.7) k/uL Lymphocytes # 0.2 L (1.0-4.8) k/uL Lymphocytes # (Manual) (1.0-4.8) k/uL Metamyelocytes # (Man) (0) k/uL APTT 88.7 H (22.0-30.0) sec D-Dimer (<0.60) mg/L FEU Chloride 110 H (98-107) mmol/L Carbon Dioxide 20 L (22-30) mmol/L BUN 32 H (9-20) mg/dL Creatinine 2.44 H (0.66-1.25) mg/dL Glucose 101 H (74-99) mg/dL POC Glucose (mg/dL) (75-99) mg/dL Plasma Lactic Acid Pablo (0.7-2.0) mmol/L Calcium 7.9 L (8.4-10.2) mg/dL ALT (21-72) U/L Urine Protein (Negative) Hyaline Casts (0-2) /lpf Urine Mucus (None) /hpf 09/02/18 Range/Units 12:16 WBC (3.8-10.6) k/uL RBC (4.30-5.90) m/uL Hgb (13.0-17.5) gm/dL Hct (39.0-53.0) % RDW (11.5-15.5) % Plt Count (150-450) k/uL Neutrophils # (1.3-7.7) k/uL Neutrophils # (Manual) (1.3-7.7) k/uL Lymphocytes # (1.0-4.8) k/uL Lymphocytes # (Manual) (1.0-4.8) k/uL Metamyelocytes # (Man) (0) k/uL APTT (22.0-30.0) sec D-Dimer (<0.60) mg/L FEU Chloride (98-107) mmol/L Carbon Dioxide (22-30) mmol/L BUN (9-20) mg/dL Creatinine (0.66-1.25) mg/dL Glucose (74-99) mg/dL POC Glucose (mg/dL) 109 H (75-99) mg/dL Plasma Lactic Acid Pablo (0.7-2.0) mmol/L Calcium (8.4-10.2) mg/dL ALT (21-72) U/L Urine Protein (Negative) Hyaline Casts (0-2) /lpf Urine Mucus (None) /hpf Microbiology - Last 24 Hours (Table) 09/02/18 00:30 Urine Culture - Preliminary Urine,Voided Comments: VQ scan report reviewed Echocardiogram report reviewed Chest x-ray: report reviewed CT scan - abdomen: report reviewed CT scan - pelvis: report reviewed Venous US: report reviewed Assessment and Plan (1) Deep vein thrombosis (DVT) of right lower extremity Narrative/Plan: The patient was found to have positive study for DVT during this admission as noted. The report mentions that this clot has chronic features such as partial compressibility and thready flow. As noted, the patient did have a femoral DVT in 2013. However Dopplers in 03/11 were negative. Therefore this clot definitely represents a new occurrence compared to 2016. It is quite possible that it is not acute in relation to this admission. Given the history, this may have formed in late 2018 for example. - The DVT may not be related at all to the patient's acute presentation. However as it represents recurrent thrombosis, even if it is somewhat chronic, it is quite appropriate to place the patient back on anticoagulation. As the patient's venous thrombolic events have been unprovoked, and recurrent, he will need to be on indefinite anticoagulation as long as he tolerates it well. - He denies any family history, but based on history of recurrence would be a reasonable candidate to consider hypercoagulable testing. He was advised that this would not change his management but may have implications for his family. He is interested in the same, and can have that done as an outpatient. - Heparin is reasonable in the acute setting, and he can be switched over to Xarelto or Eliquis for outpatient anticoagulation. He tolerated Xarelto well in the past. - He and his family were also advised, that after full dose treatment for about 6 months, if the patient is subsequently in the low risk category based on resolution of clot burden, he could potentially be switched to the lower maintenance dosing Current Visit: Yes Status: Acute Code(s): I82.401 - ACUTE EMBOLISM AND THOMBOS UNSP DEEP VEINS OF R LOW EXTREM SNOMED Code(s): 477681481 (2) Shortness of breath Narrative/Plan: The patient had low probability of PE on VQ scan. Therefore, as noted, his acute presentation may not be related to his right lower extremity DVT at all. Prior echocardiogram in 03/11 had shown evidence of possible pulmonary hypertension and tricuspid regurg. Consider reevaluation if felt to be clinically indicated by the admitting service as the patient continues to have some shortness of breath. Defer to them in this regard Current Visit: No Status: Acute Code(s): R06.02 - SHORTNESS OF BREATH SNOMED Code(s): 904535809 Plan: Defer to the admitting service and other consultants for management of his multiple other medical problems
[2018-09-02] MEDS: metroNIDAZOLE 500 MG TAB PO SCH ×2 (15:43→22:36)
[2018-09-02] MEDS: IOPAMIDOL-300 CONTRAST 30 ML VIAL (ORAL USE) PO PRN ×2 (15:43→16:47)
[2018-09-02 17:11] LABS: Glucose,Whole Blood 132 mg/dL (75-99)
[2018-09-02] MEDS: TAMSULOSIN 0.4 MG CAP.ER.24H PO SCH (17:22)
--- NOTE | 2018-09-02 17:40 | CT ---
EXAMINATION TYPE: CT abdomen pelvis wo con DATE OF EXAM: 09/02/2018 COMPARISON: 08/05/2018 HISTORY: abdominal pain and fever. CT DLP: 1141.4 mGycm Automated exposure control for dose reduction was used. TECHNIQUE: Helical acquisition of images was performed from the lung bases through the pelvis. FINDINGS: There is mild atelectasis at the lung bases. There is mild pleural thickening at the lung bases. Ther e is no pericardial effusion. Liver spleen pancreas gallbladder appear normal. Bile ducts are not dilated. Stomach appears normal. There is no adrenal mass. Kidneys have normal size. There is no hydronephrosis. There is exophytic 2 cm cortical cyst posterior right kidney. Ureters are not dilated. Abdominal aorta is atheromatous. Th ere is no retroperitoneal adenopathy. There is 2 cm cortical cyst posterior left kidney. Bladder distends smoothly. There is no inguinal hernia. There is no mesenteric edema. There is no ro e air. There is no ascites. There is no sign of a bowel obstruction. There are spondylotic changes in the lumbar spine. I see no bony destructive process. Exam is limited slightly by motion. Appendix ap pears normal. IMPRESSION: THERE IS MILD ATELECTASIS AND PLEURAL THICKENING AT THE LUNG BASES INCREASED COMPARED TO LAST EXAM. S TABLE RENAL CORTICAL CYSTS.
--- NOTE | 2018-09-02 20:00 | PN ---
PROGRESS NOTE DATE OF SERVICE: 09/02/2018. This 78-year-old gentleman who was admitted with right leg swelling and DVT, also had generalized weakness and fever. The patient also had a previous history of pulmonary embolism. The patient is on IV heparin. Patient complaining of fluid overload. Patient also had a worsening renal failure also. VQ scan did not show any evidence of pulmonary embolism. The patient has also seen in [facility] for pulmonary hypertension. PAST MEDICAL HISTORY: Past medical history reviewed. REVIEW OF SYSTEMS: CARDIOVASCULAR: As mentioned earlier. RESPIRATORY: As mentioned earlier. GI no nausea or vomiting. : No dysuria. NERVOUS SYSTEM: No numbness or weakness. CURRENT MEDICATIONS: Reviewed and include: 1. Tylenol 650 q.6 p.r.n. 2. Xanax 0.25 t.i.d. 3. Vitamin C 1000 mg daily. 4. Rocephin 1 g daily. 5. Vitamin D3 5000. 6. Pepcid 20 mg daily. 7. Heparin. 8. Milk of magnesia. 9. Flagyl 500 mg p.o. t.i.d. 10.Narcan. 11.Flomax 0.4. 12.Restoril. PHYSICAL EXAMINATION: Alert and oriented times three. Pulse is 68. Blood pressure 100/50. Respirations 18, temperature 97.9, pulse ox 95% on 2 L. HEENT: Conjunctivae normal. Oral mucosa moist. NECK is no jugular venous distention. No carotid bruit. No lymph node enlargement. CARDIOVASCULAR: S1, S2 muffled. RESPIRATIONS: Breath sounds diminished in the bases. Scattered rhonchi and crackles. ABDOMEN: Soft, nontender. LEGS: Legs bilateral leg edema. Right more the left. NERVOUS SYSTEM: No focal deficits. LABS: WBC 11.2, hemoglobin 10.2, platelets 106. Sodium 130, potassium 4.8, creatinine is 2.4. ASSESSMENT: 1. Right leg swelling with acute right leg deep vein thrombosis. 2. Generalized weakness and fever related to hypotension, rule out sepsis. 3. Renal failure possible acute renal failure with acute tubular necrosis. 4. Elevated plasma lactic acid. 5. Elevated D-dimer with no evidence of pulmonary embolism. 6. Increased WBC. 7. Anemia. 8. Thrombocytopenia. 9. History of pulmonary embolism as well as deep vein thrombosis previously. 10.History of coronary artery disease/stent. 11.Hyperlipidemia. 12.History of degenerative joint disease. 13.History of sleep apnea. 14.History of adenoidectomy. 15.Obesity with body mass index of 35.4. 16.NO CODE, NO CPR, NO VENT. RECOMMENDATIONS AND DISCUSSION: I recommend to continue current medications, symptomatic treatment. Otherwise, at this time, will recommend to continue current medications. I would also recommend a 2D echo with Doppler and nephrology consultation. The prognosis guarded because of multiple complex medical issues. Further recommendations to follow. See orders for further details. MMODL / IJN: [id number] /
[2018-09-02 20:47] LABS: Glucose,Whole Blood 137 mg/dL (75-99)
--- NOTE | 2018-09-02 23:14 | P.CONS ---
History of Present Illness - Reason for Consult Consult date: 09/02/18 Sepsis Requesting physician: Lazaro Guerin - Chief Complaint Weakness and right leg swelling with redness - History of Present Illness Patient is a 78-year-old male who has been brought into the ER at [facility] with chief complains of generalized weakness no energy and concern for possible follow-up patient has been complaining of increasing swelling of the lower extremity been going on for the last week or so more marked in the right leg along with increasing shortness of breath with minimal exertion even at rest the patient denies having any chest pain no cough or sputum production no choking with food no nausea no vomiting no abdominal pain no diarrhea , however the patient does complain of constipation with small bowel movement every 2 days and also per family the patient did have more redness to his right leg and the patient was complaining of some discomfort in the right leg more of a dull aching pain 2-3 left and no radiation the patient did have a chest x-ray on admission that was negative for any acute infiltrate he did have a lower extremity Doppler that was positive for DVT in the right leg mucus scan was low probability patient did have a fever 102 and her presentation currently being treated with IV Rocephin UA has been negative infectious disease was consulted for further recommendation regarding antibiotic and possible sepsis Review of Systems Positive points has been mentioned in HPI rest of the systems are negative Past Medical History Past Medical History: Coronary Artery Disease (CAD), Heart Failure, Deep Vein Thrombosis (DVT), Hyperlipidemia, Osteoarthritis (OA), Pulmonary Embolus (PE), Skin Disorder, Sleep Apnea/CPAP/BIPAP, Vascular Disorder Additional Past Medical History / Comment(s): STENTS, SKIN CA, RHEUMATIC FEVER , abdominal hernia History of Any Multi-Drug Resistant Organisms: None Reported Past Surgical History: Adenoidectomy, Heart Catheterization With Stent, Tonsillectomy Additional Past Surgical History / Comment(s): skin CA removed from chin 2011, colonoscopy Past Anesthesia/Blood Transfusion Reactions: No Reported Reaction Date of Last Stent Placement:: 2007 Past Psychological History: No Psychological Hx Reported Smoking Status: Never smoker Past Alcohol Use History: None Reported Past Drug Use History: None Reported - Past Family History Father Family Medical History: Congestive Heart Failure (CHF), Coronary Artery Disease (CAD) Additional Family Medical History / Comment(s): CABG Mother Family Medical History: Congestive Heart Failure (CHF), Renal Disease Additional Family Medical History / Comment(s): dialysis patient Medications and Allergies Home Medications Medication Instructions Recorded Confirmed Type Advanced Nerve Support 1 tab PO DAILY 09/01/18 09/01/18 History Ascorbic Acid [Vitamin C] 1,000 mg PO DAILY 09/01/18 09/01/18 History Cholecalciferol [Vitamin D3 (25 5,000 unit PO DAILY 09/01/18 09/01/18 History Mcg = 1000 Iu)] Florassist-Nasal 1 tab PO DAILY 09/01/18 09/01/18 History Glucosamine/Chondr Saleh A Sod [Osteo 1 tab PO DAILY 09/01/18 09/01/18 History Bi-Flex Caplet] Multivitamins, Thera [Multivitamin 1 tab PO DAILY 09/01/18 09/01/18 History (formulary)] Naproxen Sodium [Aleve] 440 mg PO Q12HR PRN 09/01/18 09/01/18 History Saw [place] 500 mg PO DAILY 09/01/18 09/01/18 History Allergies Allergy/AdvReac Type Severity Reaction Status Date / Time clindamycin Allergy Intermediate Rash/Hives Verified 09/01/18 17:36 amoxicillin [Amoxicillin] Allergy Rash/Hives Verified 09/01/18 17:36 gentamicin [Gentamicin] Allergy Rash/Hives Verified 09/01/18 17:36 levofloxacin Allergy Rash/Hives Verified 09/01/18 17:36 sulfamethoxazole Allergy Rash/Hives Verified 09/01/18 17:36 [From Bactrim] trimethoprim [From Bactrim] Allergy Unknown Verified 09/01/18 17:36 vancomycin Allergy Unknown Verified 09/01/18 17:36 Physical Exam Vitals: Vital Signs Temp Pulse Pulse Resp BP BP Pulse Ox 09/02/18 11:50 97.9 F 68 18 100/58 09/02/18 07:50 98.3 F 76 18 90/50 09/02/18 04:00 100.2 F H 88 18 95/56 09/02/18 00:15 101/64 09/01/18 23:51 78 18 09/01/18 23:44 98.3 F 78 18 87/48 09/01/18 22:07 98.9 F 78 18 81/56 09/01/18 20:00 104 H 29 H 110/77 95 09/01/18 19:50 107 H 22 115/88 96 09/01/18 19:40 109 H 17 100/68 96 09/01/18 19:30 110 H 24 106/54 95 09/01/18 19:20 106 H 20 106/54 96 09/01/18 19:10 107 H 22 106/54 97 09/01/18 19:00 111 H 20 103/55 99 09/01/18 18:50 109 H 20 103/55 75 L 09/01/18 18:40 111 H 21 103/55 82 L 09/01/18 18:30 111 H 21 115/58 100 09/01/18 18:20 109 H 20 115/58 95 09/01/18 18:10 113 H 115/58 09/01/18 18:00 112 H 104/58 98 09/01/18 17:50 112 H 22 104/58 98 09/01/18 17:40 113 H 25 H 104/58 98 09/01/18 17:30 113 H 30 H 107/57 98 09/01/18 17:28 102.5 F H 124 H 20 98 09/01/18 17:20 114 H 28 H 107/57 100 09/01/18 17:10 107/57 09/01/18 17:00 118 H 27 H 115/68 09/01/18 16:50 118 H 29 H 115/68 95 09/01/18 16:40 118 H 30 H 115/68 98 09/01/18 16:30 125 H 28 H 09/01/18 16:27 23 09/01/18 16:19 99.6 F 121 H 25 H 115/68 93 L Intake and Output 09/01/18 09/02/18 09/02/18 22:59 06:59 14:59 Intake Total 500 127.041 692.858 Output Total 150 100 Balance 500 -22.959 592.858 Intake: Intake, IV Titration 127.041 212.858 Amount Heparin Sod,Pork in 0.45% 127.041 162.858 NaCl 25,000 unit In 0.45 % NaCl 1 250ml.bag @ 18 UNITS/KG/HR 19.595 mls/hr IV .[id number] [facility] Rx#: [id number] cefTRIAXone 1 gm In 50 Sodium Chloride 0.9% 50 ml @ 100 mls/hr IVPB Q24HR [facility] Rx#:[id number] Oral 500 480 Output: Urine 150 100 Other: # Voids 1 Weight 114.5 kg 114.2 kg GENERAL DESCRIPTION: Elderly male lying in bed, no distress. No tachypnea or accessory muscle of respiration use. HEENT: Shows Pallor , no scleral icterus. Oral mucous membrane is dry. No pharyngeal erythema or thrush NECK: Trachea central, no thyromegaly. LUNGS: Unlabored breathing. Decreased breath sound at the base. No wheeze or crackle. HEART: S1, S2, regular rate and rhythm. No loud murmur ABDOMEN: Soft, mild right sided tenderness , no guarding or rigidity EXTREMITIES: 2+ edema of feet. And minimal erythema to the right anterior leg SKIN: No rash, no masses palpable. NEUROLOGICAL: The patient is awake, alert, oriented x3, mood and affect normal Results CBC & Chem 7: 09/02/18 08:01 09/02/18 08:01 Labs: Abnormal Lab Results - Last 24 Hours (Table) 09/01/18 09/01/18 09/01/18 Range/Units 16:42 16:42 16:42 WBC 11.8 H (3.8-10.6) k/uL RBC 3.75 L (4.30-5.90) m/uL Hgb 11.5 L (13.0-17.5) gm/dL Hct 35.6 L (39.0-53.0) % RDW (11.5-15.5) % Plt Count 122 L (150-450) k/uL Neutrophils # (1.3-7.7) k/uL Neutrophils # (Manual) 11.50 H (1.3-7.7) k/uL Lymphocytes # (1.0-4.8) k/uL Lymphocytes # (Manual) 0.24 L (1.0-4.8) k/uL Metamyelocytes # (Man) 0.12 H (0) k/uL APTT (22.0-30.0) sec D-Dimer (<0.60) mg/L FEU Chloride 108 H (98-107) mmol/L Carbon Dioxide (22-30) mmol/L BUN 24 H (9-20) mg/dL Creatinine 1.59 H (0.66-1.25) mg/dL Glucose 104 H (74-99) mg/dL POC Glucose (mg/dL) (75-99) mg/dL Plasma Lactic Acid Pablo (0.7-2.0) mmol/L Calcium (8.4-10.2) mg/dL ALT 15 L (21-72) U/L Urine Protein 2+ H (Negative) Hyaline Casts 7 H (0-2) /lpf Urine Mucus Occasional H (None) /hpf 09/01/18 09/01/18 09/02/18 Range/Units 16:42 16:42 01:50 WBC (3.8-10.6) k/uL RBC (4.30-5.90) m/uL Hgb (13.0-17.5) gm/dL Hct (39.0-53.0) % RDW (11.5-15.5) % Plt Count (150-450) k/uL Neutrophils # (1.3-7.7) k/uL Neutrophils # (Manual) (1.3-7.7) k/uL Lymphocytes # (1.0-4.8) k/uL Lymphocytes # (Manual) (1.0-4.8) k/uL Metamyelocytes # (Man) (0) k/uL APTT 89.0 H (22.0-30.0) sec D-Dimer 3.88 H (<0.60) mg/L FEU Chloride (98-107) mmol/L Carbon Dioxide (22-30) mmol/L BUN (9-20) mg/dL Creatinine (0.66-1.25) mg/dL Glucose (74-99) mg/dL POC Glucose (mg/dL) (75-99) mg/dL Plasma Lactic Acid Pablo 2.4 H* (0.7-2.0) mmol/L Calcium (8.4-10.2) mg/dL ALT (21-72) U/L Urine Protein (Negative) Hyaline Casts (0-2) /lpf Urine Mucus (None) /hpf 09/02/18 09/02/18 09/02/18 Range/Units 08:01 08:01 08:01 WBC 11.2 H (3.8-10.6) k/uL RBC 3.21 L (4.30-5.90) m/uL Hgb 10.3 L (13.0-17.5) gm/dL Hct 30.7 L (39.0-53.0) % RDW 16.3 H (11.5-15.5) % Plt Count 106 L (150-450) k/uL Neutrophils # 10.4 H (1.3-7.7) k/uL Neutrophils # (Manual) (1.3-7.7) k/uL Lymphocytes # 0.2 L (1.0-4.8) k/uL Lymphocytes # (Manual) (1.0-4.8) k/uL Metamyelocytes # (Man) (0) k/uL APTT 88.7 H (22.0-30.0) sec D-Dimer (<0.60) mg/L FEU Chloride 110 H (98-107) mmol/L Carbon Dioxide 20 L (22-30) mmol/L BUN 32 H (9-20) mg/dL Creatinine 2.44 H (0.66-1.25) mg/dL Glucose 101 H (74-99) mg/dL POC Glucose (mg/dL) (75-99) mg/dL Plasma Lactic Acid Pablo (0.7-2.0) mmol/L Calcium 7.9 L (8.4-10.2) mg/dL ALT (21-72) U/L Urine Protein (Negative) Hyaline Casts (0-2) /lpf Urine Mucus (None) /hpf 09/02/18 Range/Units 12:16 WBC (3.8-10.6) k/uL RBC (4.30-5.90) m/uL Hgb (13.0-17.5) gm/dL Hct (39.0-53.0) % RDW (11.5-15.5) % Plt Count (150-450) k/uL Neutrophils # (1.3-7.7) k/uL Neutrophils # (Manual) (1.3-7.7) k/uL Lymphocytes # (1.0-4.8) k/uL Lymphocytes # (Manual) (1.0-4.8) k/uL Metamyelocytes # (Man) (0) k/uL APTT (22.0-30.0) sec D-Dimer (<0.60) mg/L FEU Chloride (98-107) mmol/L Carbon Dioxide (22-30) mmol/L BUN (9-20) mg/dL Creatinine (0.66-1.25) mg/dL Glucose (74-99) mg/dL POC Glucose (mg/dL) 109 H (75-99) mg/dL Plasma Lactic Acid Pablo (0.7-2.0) mmol/L Calcium (8.4-10.2) mg/dL ALT (21-72) U/L Urine Protein (Negative) Hyaline Casts (0-2) /lpf Urine Mucus (None) /hpf Microbiology - Last 24 Hours (Table) 09/02/18 00:30 Urine Culture - Preliminary Urine,Voided Assessment and Plan Assessment: 1-patient with a fever in this patient has been admitted hospital with increasing swelling of the legs shortness of breath weakness with possible minimal erythema to the right leg and concern for possible cellulitis of the leg however the patient also complained of constipation and some abdominal tenderness underlying abdominal source not entirely excluded 2-his DVT to the right leg may be contributing to some of his fever (1) Cellulitis Current Visit: Yes Status: Acute Code(s): L03.90 - CELLULITIS, UNSPECIFIED SNOMED Code(s): 249191973 (2) Febrile illness, acute Current Visit: Yes Status: Acute Code(s): R50.9 - FEVER, UNSPECIFIED SNOMED Code(s): 669523777 Plan: 1-we will obtain a CT of abdominal pelvis with oral contrast only to rule out any intra-abdominal pathology in view of the fever constipation and abdominal tenderness 2-continue with the Rocephin however add Flagyl we will follow up on clinical condition and cultures to further adjust medication if needed Thank you for this consultation will follow this patient along with you Time with Patient: Greater than 30
[2018-09-03 06:33] LABS: Anisocytosis Slight; Basophils % (A) 0 %; Eosinophils # (A) 0.1 k/uL (0-0.7); Eosinophils % (A) 3 %; HCT 30.2 % (39.0-53.0); HGB 9.9 gm/dL (13.0-17.5); Lymphocytes # (A) 0.2 k/uL (1.0-4.8); Lymphocytes % (A) 5 %; MCH 31.3 pg (25.0-35.0); MCHC 32.9 g/dL (31.0-37.0); MCV 95.1 fL (80.0-100.0); Mean Platelet Volume 8.1; Monocytes # (A) 0.2 k/uL (0-1.0); Monocytes % (A) 5 %; Neutrophils # (A) 3.6 k/uL (1.3-7.7); Neutrophils % (A) 83 %; RBC 3.17 m/uL (4.30-5.90); RDW 16.4 % (11.5-15.5); WBC 4.3 k/uL (3.8-10.6)
[2018-09-03 06:38] LABS: Glucose,Whole Blood 100 mg/dL (75-99)
[2018-09-03 06:56] LABS: Potassium 4.2 mmol/L (3.5-5.1)
[2018-09-03 07:00] LABS: Platelet Count 89 k/uL (150-450)
[2018-09-03] MEDS: ASCORBIC ACID 500 MG TAB PO SCH (08:53)
[2018-09-03] MEDS: MULTIVITAMINS, THERA 1 EACH TAB PO SCH (08:54)
[2018-09-03] MEDS: CHOLECALCIFEROL 1,000 UNIT TAB PO SCH (08:54)
[2018-09-03] MEDS: metroNIDAZOLE 500 MG TAB PO SCH (08:54)
[2018-09-03] MEDS: FAMOTIDINE 20 MG TAB PO SCH (08:54)
[2018-09-03 11:42] LABS: Glucose,Whole Blood 91 mg/dL (75-99)
--- NOTE | 2018-09-03 12:58 | PN ---
PROGRESS NOTE DATE OF SERVICE: 09/03/2018 REASON FOR FOLLOWUP: Fever, possible right lower extremity cellulitis. INTERVAL HISTORY: The patient is currently afebrile. The patient has been breathing more comfortably today. The patient denies having any chest pain. No shortness of breath, cough, no abdominal pain. No nausea, vomiting or diarrhea. PHYSICAL EXAMINATION: Blood pressure is 114/65 with a pulse of 70, temperature 97.2, he is 97% on room air. General description is an elderly male, up in the chair in no distress. RESPIRATORY SYSTEM: Unlabored breathing, clear to auscultation anteriorly. HEART: S1, S2. Regular rate and rhythm. ABDOMEN: Soft, no tenderness. EXTREMITIES: Right leg with swelling and redness has improved. No open wound or any drainage. LABS: Hemoglobin 9.8, white count of 4.3, BUN of 36, creatinine 2.25. The CT is negative for any colitis. DIAGNOSTIC IMPRESSION AND PLAN: Patient with a fever, source likely lower extremity DVT, possible cellulitis. Currently covered with Rocephin. Fever has resolved as no abdominal source. Flagyl will be discontinued. Continue supportive care. MMODL / IJN: [id number] /
--- NOTE | 2018-09-03 14:27 | P.PN ---
Subjective This is a pleasant 78 years old male with past medical history of coronary artery disease, heart failure, deep venous thrombosis, hyperlipidemia, os teoarthritis, sleep apnea on CPAP/BiPAP, status post stent placement, history of skin cancer. He presents with multiple medical problems including right lower extremity DVT venous thrombosis for which she was started on heparin drip. Also was complaining of from fever and acute kidney injury upon her presentation. Patient is being considered for oral anticoagulation and prescription is a provided to see coverage with the staff. Patient is currently on antibiotics with ceftriaxone and Flagyl. His hemoglobin is stable. Creatinine on admission was elevated at 2.4, compared to baseline of 1.59. Currently is 2.5. Live In Caregiver is a following to the patient Objective - Vital Signs Vital signs: Vital Signs Temp 97.2 F L 09/03/18 11:51 Pulse 70 09/03/18 11:52 Resp 16 09/03/18 11:52 BP 114/65 09/03/18 11:51 Pulse Ox 97 09/03/18 11:51 Intake & Output 09/02/18 09/03/18 09/03/18 18:59 06:59 18:59 Intake Total 900.073 9723.49 592.42 Output Total 400 950 Balance 532.858 512.49 592.42 Weight 113.6 kg Intake: Intake, IV Titration 212.858 182.49 112.42 Amount Heparin Sod,Pork in 0.45% 162.858 182.49 112.42 NaCl 25,000 unit In 0.45 % NaCl 1 250ml.bag @ 18 UNITS/KG/HR 19.595 mls/hr IV .[id number] [facility] Rx#: [id number] cefTRIAXone 1 gm In 50 Sodium Chloride 0.9% 50 ml @ 100 mls/hr IVPB Q24HR [facility] Rx#:[id number] Oral 720 1280 480 Output: Urine 400 950 Other: # Voids 3 # Bowel Movements 1 - Labs CBC & Chem 7: 09/03/18 06:01 09/03/18 06:01 Labs: Abnormal Lab Results - Last 24 Hours (Table) 09/02/18 09/02/18 09/02/18 Range/Units 16:28 17:05 20:45 RBC (4.30-5.90) m/uL Hgb (13.0-17.5) gm/dL Hct (39.0-53.0) % RDW (11.5-15.5) % Plt Count (150-450) k/uL Lymphocytes # (1.0-4.8) k/uL APTT 59.6 H (22.0-30.0) sec Chloride (98-107) mmol/L Carbon Dioxide (22-30) mmol/L BUN (9-20) mg/dL Creatinine (0.66-1.25) mg/dL Glucose (74-99) mg/dL POC Glucose (mg/dL) 132 H 137 H (75-99) mg/dL Calcium (8.4-10.2) mg/dL 09/03/18 09/03/18 09/03/18 Range/Units 06:01 06:01 06:01 RBC 3.17 L (4.30-5.90) m/uL Hgb 9.9 L (13.0-17.5) gm/dL Hct 30.2 L (39.0-53.0) % RDW 16.4 H (11.5-15.5) % Plt Count 89 L (150-450) k/uL Lymphocytes # 0.2 L (1.0-4.8) k/uL APTT 56.8 H (22.0-30.0) sec Chloride 110 H (98-107) mmol/L Carbon Dioxide 20 L (22-30) mmol/L BUN 36 H (9-20) mg/dL Creatinine 2.25 H (0.66-1.25) mg/dL Glucose 102 H (74-99) mg/dL POC Glucose (mg/dL) (75-99) mg/dL Calcium 8.0 L (8.4-10.2) mg/dL 09/03/18 Range/Units 06:37 RBC (4.30-5.90) m/uL Hgb (13.0-17.5) gm/dL Hct (39.0-53.0) % RDW (11.5-15.5) % Plt Count (150-450) k/uL Lymphocytes # (1.0-4.8) k/uL APTT (22.0-30.0) sec Chloride (98-107) mmol/L Carbon Dioxide (22-30) mmol/L BUN (9-20) mg/dL Creatinine (0.66-1.25) mg/dL Glucose (74-99) mg/dL POC Glucose (mg/dL) 100 H (75-99) mg/dL Calcium (8.4-10.2) mg/dL Microbiology - Last 24 Hours (Table) 09/02/18 00:30 Urine Culture - Final Urine,Voided 09/01/18 16:50 Blood Culture - Preliminary Blood No Growth after 24 hours Assessment and Plan Assessment: Acute right leg deep venous thrombosis Fever, possible sepsis. Acute kidney injury Chronic kidney disease, stage III History of coronary artery disease History of chronic heart failure Hyperlipidemia Osteoarthritis Sleep apnea on CPAP/BiPAP History of skin cancer Plan: This is a pleasant 78 years old male who presents with acute right leg DVT and fever with acute kidney injury. Continue with antibiotics. Continue with anticoagulation and the plan to switch to oral anticoagulants prior to discharge. Live In Caregiver area evaluated the patient for acute kidney injury.Labs and medication were reviewed.. Continue same treatment. Continue with symptomatic treatment. Resume home medication. Monitor lytes and vitals. DVT and GI prophylaxis. Further recommendations of the clinical course of the patient DVT prophylaxis: On anticoagulation GI Prophylaxis: Protonix PT/OT: Pending Prognosis is guarded
--- NOTE | 2018-09-03 16:25 | CONS ---
CONSULTATION REASON FOR CONSULT: Renal failure. HISTORY OF PRESENT ILLNESS: The patient is a 78-year-old male who was admitted to the hospital with complaints of increased lower extremity edema and shortness of breath. The patient denies any prior history of kidney diseases, although he did state that his kidney function has been borderline previously. He came in with a creatinine of about 1.59 and it did peak to 2.4 yesterday and today it is down to 2.25. The patient was found to have a right lower extremity DVT for which he is currently maintained on anticoagulation. He did have a fever of 102.5 degrees Fahrenheit as well at the time of admission. Cultures are currently negative and chest x-ray on initial admission showed no active disease. The patient also had an abdominal CT done yesterday which shows pleural thickening at the lung bases. There was no evidence of hydronephrosis and cortical cysts were noted. Patient's blood pressure has been slightly on the lower side. He was, however, significantly low at 81/56 on initial admission, currently at about 140 mmHg systolic. At home, patient was on Naprosyn prior to admission. Currently not on any IV fluids. PAST MEDICAL HISTORY: Significant for previous history of PE, coronary artery disease, history of CHF, ejection fraction not known, obstructive sleep apnea, hyperlipidemia, osteoarthritis, skin cancer, history of rheumatic fever, abdominal hernia, hyperlipidemia. PAST SURGICAL HISTORY: Adenoidectomy, cardiac catheterization, coronary stent placement, tonsillectomy, skin cancer removal from the chin, colonoscopy. SOCIAL HISTORY: Negative for smoking, drug abuse or alcohol abuse. MEDICATIONS: Prior to admission included glucosamine, Naprosyn, vitamin D, vitamin C. ALLERGIES: INCLUDE CLINDAMYCIN, AMOXICILLIN, GENTAMICIN AND LEVAQUIN, BACTRIM, ALL OF WHICH CAUSE RASH AND HIVES, AND PATIENT IS ALSO ALLERGIC TO VANCOMYCIN. REVIEW OF SYSTEMS: As per HPI. Other systems negative. FAMILY HISTORY: Positive for mother being on dialysis for about 5-6 years. PHYSICAL EXAMINATION: Patient is currently comfortable, awake. He is alert and oriented x3, not in any acute distress. Blood pressure this morning was 101/62, heart rate of 70 per minute. He is afebrile. Examination of the heart S1, S2. Examination of the lungs, bilateral breath sounds are heard. Abdomen is soft, nontender. Examination lower extremities shows edema 1+ right lower extremity, trace edema in the left lower extremity. MANAGER HOUSEKEEPING exam is grossly intact. LAB: Show sodium 137, potassium 4.2, BUN 36, serum creatinine 2.25, hemoglobin 9.9 g/dL. UA shows 2+ protein. Stool for occult blood was negative. ASSESSMENT: 1. Acute kidney injury secondary to hypotension and NSAIDs and slightly improved from yesterday. The patient is not on any IV fluids. I will add gentle hydration, and he is encouraged to increase his oral p.o. intake as well. The patient is advised to avoid any nephrotoxic agents. There is no evidence of obstructive uropathy on the CAT scan. The UA does show protein. We also need to rule out underlying chronic glomerular nephritis. Plan is to start gentle IV hydration. Check random urine creatinine and protein. Check baseline serologies. It appears that the patient has had proteinuria all the way to 2013 as well. May continue with anticoagulation. 2. Right lower extremity deep vein thrombosis with previous history of pulmonary embolism, being followed by Hematology. 3. Thrombocytopenia. PLAN: Increase oral intake. Maintain anticoagulation. Start gentle IV hydration. Check workup for proteinuria and quantify the proteinuria. Repeat labs in a.m. Avoid NSAIDs. Thank you for this consultation. We will continue to follow the patient with you during his hospitalization. MMODL / IJN: [id number] /
[2018-09-03] MEDS: RIVAROXABAN 15 MG TAB PO SCH (16:58)
[2018-09-03] MEDS: TAMSULOSIN 0.4 MG CAP.ER.24H PO SCH (16:58)
[2018-09-03] MEDS: SODIUM CHLORIDE 0.9% 1,000 ML IV SCH (16:58)
--- NOTE | 2018-09-03 19:27 | ECHOF ---
Referral Reason:fever h/o endocarditis MEASUREMENTS -------- HEIGHT: 175.3 cm WEIGHT: 113.4 kg BP: 110/62 IVSd: 1.4 cm (0.6 - 1.1) LVIDd: 5.3 cm (3.9 - 5.3) LVPWd: 1.7 cm (0.6 - 1.1) IVSs: 2.0 cm LVIDs: 4.2 cm LVPWs: 1.7 cm RVIDd: 4.1 cm (< 3.3) LAESV Index (A-L): 36.32 ml/m Ao Diam: 3.1 cm (2.0 - 3.7) LA Diam: 4.6 cm (2.7 - 3.8) AV Cusp: 1.9 cm (1.5 - 2.6) EPSS: 1.0 cm MV E Dani: 1.02 m/s MV DecT: 198 ms MV A Dani: 0.72 m/s MV E/A Ratio: 1.41 RAP: 20.00 mmHg RVSP: 41.27 mmHg MV EF SLOPE: 112.96 mm/s (70 - 150) MV EXCURSION: 1.92 cm (> 18.000) FINDINGS -------- Sinus rhythm. This was a technically difficult study with suboptimal views. The left ventricular size is normal. There is moderate concentric left ventricular hypertrophy. O verall left ventricular systolic function is mildly impaired with, an EF between 45 - 50 %. The right ventricle is severely enlarged. Left atrium is moderately dilated by volume. The right atrial size is normal. Lumason used Interatrial and interventricular septum intact. The aortic valve is trileaflet and appears structurally normal. There is mild aortic valve sclerosi s without stenosis. Mild mitral annular calcification present. Mild mitral regurgitation is present. Mild tricuspid regurgitation present. There is mild pulmonary hypertension. The right ventricular systolic pressure, as measured by Doppler, is 41.27mmHg. There is no pulmonic regurgitation present. The aortic root size is normal. The inferior vena cava is mildly dilated. The inferior vena cava is dilated with no significant ins piratory collapse which is consistent estimated right atrial pressure of >20 mmHg. Echo free space may represent effusion or a pericardial fat pad. CONCLUSIONS -------- 1. Sinus rhythm. 2. This was a technically difficult study with suboptimal views. 3. The left ventricular size is normal. 4. There is moderate concentric left ventricular hypertrophy. 5. Overall left ventricular systolic function is mildly impaired with, an EF between 45 - 50 %. 6. The right ventricle is severely enlarged. 7. Left atrium is moderately dilated by volume. 8. The right atrial size is normal. 9. Lumason used 10. Interatrial and interventricular septum intact. 11. The aortic valve is trileaflet and appears structurally normal. 12. There is mild aortic valve sclerosis without stenosis. 13. Mild mitral annular calcification present. 14. Mild mitral regurgitation is present. 15. Mild tricuspid regurgitation present. 16. There is mild pulmonary hypertension. 17. The right ventricular systolic pressure, as measured by Doppler, is 41.27mmHg. 18. There is no pulmonic regurgitation present. 19. The aortic root size is normal. 20. The inferior vena cava is mildly dilated. 21. The inferior vena cava is dilated with no significant inspiratory collapse which is consistent es timated right atrial pressure of >20 mmHg. 22. Echo free space may represent effusion or a pericardial fat pad. POST OFFICE CLERK: Michelle Loco RDCS
[2018-09-04] MEDS: RIVAROXABAN 15 MG TAB PO SCH ×2 (06:16→17:46)
[2018-09-04 07:34] LABS: HGB 10.3 gm/dL (13.0-17.5); Hypochromasia Slight; MCH 30.6 pg (25.0-35.0); MCHC 31.4 g/dL (31.0-37.0); MCV 97.4 fL (80.0-100.0); Mean Platelet Volume 7.7; RBC 3.38 m/uL (4.30-5.90); RDW 15.7 % (11.5-15.5); WBC 2.7 k/uL (3.8-10.6)
[2018-09-04 08:02] LABS: Platelet Count 95 k/uL (150-450)
[2018-09-04 08:10] LABS: Calcium 8.4 mg/dL (8.4-10.2); Potassium 4.3 mmol/L (3.5-5.1)
[2018-09-04] MEDS: ASCORBIC ACID 500 MG TAB PO SCH (10:25)
[2018-09-04] MEDS: FAMOTIDINE 20 MG TAB PO SCH (10:26)
[2018-09-04] MEDS: CHOLECALCIFEROL 1,000 UNIT TAB PO SCH (10:26)
[2018-09-04] MEDS: MULTIVITAMINS, THERA 1 EACH TAB PO SCH (10:26)
[2018-09-04 11:23] LABS: Band Neutrophils % 2 %; Eosinophils # (M) 0.05 k/uL (0-0.7); Lymphocytes # (M) 0.49 k/uL (1.0-4.8); Monocytes # (M) 0.32 k/uL (0-1.0); Neutrophils % (M) 66 %; Nucleated Red Blood Cells 0 /100 WBC (0-0); Total Cells Counted 100
[2018-09-04 11:25] LABS: Poikilocytosis (M) Present
--- NOTE | 2018-09-04 11:26 | P.PN ---
Subjective This is a pleasant 78 years old male with past medical history of coronary artery disease, heart failure, deep venous thrombosis, hyperlipidemia, os teoarthritis, sleep apnea on CPAP/BiPAP, status post stent placement, history of skin cancer. He presents with multiple medical problems including right lower extremity DVT venous thrombosis for which she was started on heparin drip. Also was complaining of from fever and acute kidney injury upon her presentation. Patient is being considered for oral anticoagulation and prescription is a provided to see coverage with the staff. Patient is currently on antibiotics with ceftriaxone and Flagyl. His hemoglobin is stable. Creatinine on admission was elevated at 2.4, compared to baseline of 1.59. Currently is 2.5. Gas Turbine Mechanic is a following to the patient 09/04/2018 Patient today is awake, he is denying any respiratory symptoms with no dyspnea, chest pain or coughing. He doesn't have overt diarrhea but his bowel movement this morning was soft. No abdominal pain or tenderness. No nausea vomiting and is tolerating diet well. He still has right leg swelling and cellulitis. He is currently on ceftriaxone and is improving. Heparin drip was stopped yesterday for his right leg DVT and he was started on xarerlto , commissioned security officer team were concerned his DVT might not contributing to patient symptoms on admission. Echocardiogram showing enlarged right ventricle. Ejection fraction 45-50% with moderate LVH. We will call pulmonary consult. Patient is currently on gentle hydration for his kidney injury. His creatinine today is down to 1.79. WBCs 2.7K, hemoglobin 10.3. Platelets 95. Objective - Vital Signs Vital signs: Vital Signs Temp 98.6 F 09/04/18 09:35 Pulse 63 09/04/18 09:35 Resp 18 09/04/18 09:35 BP 126/66 09/04/18 09:35 Pulse Ox 95 09/04/18 09:35 Intake & Output 09/03/18 09/04/18 09/04/18 18:59 06:59 18:59 Intake Total 930.00 670 150 Output Total 660 275 Balance 270.00 395 150 Weight 115.9 kg Intake: Intake, IV Titration 250.00 550 Amount Heparin Sod,Pork in 0.45% 250.00 NaCl 25,000 unit In 0.45 % NaCl 1 250ml.bag @ 18 UNITS/KG/HR 19.595 mls/hr IV .[id number] [facility] Rx#: [id number] Sodium Chloride 0.9% 1, 550 000 ml @ 50 mls/hr IV . Q20H [facility] Rx#:[id number] Oral 680 120 150 Output: Urine 660 275 Other: Voiding Method Urinal Urinal # Voids 3 2 - Exam GENERAL: The patient is alert and oriented x3, not in any acute distress. Well developed, well nourished. HEENT: Pupils are round and equally reacting to light. EOMI. No scleral icterus. No conjunctival pallor. Normocephalic, atraumatic. No pharyngeal erythema. No thyromegaly. CARDIOVASCULAR: S1 and S2 present. No murmurs, rubs, or gallops. PULMONARY: Chest is clear to auscultation, no wheezing or crackles. ABDOMEN: Soft, nontender, nondistended, normoactive bowel sounds. No palpable organomegaly. MUSCULOSKELETAL: No joint swelling or deformity. EXTREMITIES: No cyanosis, clubbing, or pedal edema. Right leg is swollen and there is some redness in the anterior part of the middle witt, right leg is more warm. NEUROLOGICAL: Gross neurological examination did not reveal any focal deficits. SKIN: No rashes. - Labs CBC & Chem 7: 09/04/18 06:11 09/04/18 06:11 Labs: Abnormal Lab Results - Last 24 Hours (Table) 09/04/18 09/04/18 Range/Units 06:11 06:11 WBC 2.7 L (3.8-10.6) k/uL RBC 3.38 L (4.30-5.90) m/uL Hgb 10.3 L (13.0-17.5) gm/dL Hct 33.0 L (39.0-53.0) % RDW 15.7 H (11.5-15.5) % Plt Count 95 L (150-450) k/uL Chloride 112 H (98-107) mmol/L Carbon Dioxide 19 L (22-30) mmol/L BUN 30 H (9-20) mg/dL Creatinine 1.79 H (0.66-1.25) mg/dL Microbiology - Last 24 Hours (Table) 09/01/18 16:50 Blood Culture - Preliminary Blood No Growth after 48 hours 09/02/18 00:30 Urine Culture - Final Urine,Voided Assessment and Plan Assessment: Acute right leg deep venous thrombosis Fever, possible sepsis. Enlarged right ventricle with ejection fraction 45-50% and moderate LVH Acute kidney injury, improving Chronic kidney disease, stage III History of coronary artery disease History of chronic heart failure Hyperlipidemia Osteoarthritis Sleep apnea on CPAP/BiPAP History of skin cancer Plan: This is a pleasant 78 years old male who presents with acute right leg DVT and fever with acute kidney injury. Continue with antibiotics. Continue with anticoagulation and he was started on xarelto, checked with social work administrator , his copay is $30 per month. Gas Turbine Mechanic area evaluated the patient for acute kidney injury, continue with gentle hydration as his kidney function improvement..Labs and medication were reviewed.. Continue same treatment. Continue with symptomatic treatment. Resume home medication. Monitor lytes and vitals. DVT and GI prophylaxis. Further recommendations of the clinical course of the patient DVT prophylaxis: On anticoagulation GI Prophylaxis: Protonix PT/OT: Pending. Home health care is recommended however patient declined Prognosis is guarded
[2018-09-04 12:16] LABS: Anti-DNA, DS unit <1.0 IU/mL; DNA Double-Stranded NEGATIVE (NEGATIVE)
[2018-09-04] MEDS: SODIUM CHLORIDE 0.9% 1,000 ML IV SCH (15:20)
--- NOTE | 2018-09-04 15:52 | P.PN ---
Subjective Progress Note Date: 09/04/18 Principal diagnosis: DVT Renal insufficiency patient was started on Xarelto yesterday, heparin was discontinued. Objective - Vital Signs Vital signs: Vital Signs Temp 98.5 F 09/04/18 11:45 Pulse 57 L 09/04/18 11:45 Resp 18 09/04/18 11:45 BP 134/71 09/04/18 11:45 Pulse Ox 99 09/04/18 11:45 Intake & Output 09/03/18 09/04/18 09/04/18 18:59 06:59 18:59 Intake Total 930.00 670 350 Output Total 660 275 450 Balance 270.00 395 -100 Weight 115.9 kg Intake: Intake, IV Titration 250.00 550 Amount Heparin Sod,Pork in 0.45% 250.00 NaCl 25,000 unit In 0.45 % NaCl 1 250ml.bag @ 18 UNITS/KG/HR 19.595 mls/hr IV .[id number] [facility] Rx#: [id number] Sodium Chloride 0.9% 1, 550 000 ml @ 50 mls/hr IV . Q20H [facility] Rx#:[id number] Oral 680 120 350 Output: Urine 660 275 450 Other: Voiding Method Urinal Urinal # Voids 3 2 - Exam - Constitutional General appearance: no acute distress - EENT Eyes: EOMI, PERRLA ENT: hearing grossly normal, normal oropharynx - Neck Neck: no lymphadenopathy - Respiratory Respiratory: bilateral: diminished - Cardiovascular Rhythm: regular Heart sounds: normal: S1, S2 - Gastrointestinal General gastrointestinal: normal bowel sounds, soft - Integumentary Integumentary: normal - Neurologic Neurologic: CNII-XII intact - Musculoskeletal Musculoskeletal: generalized weakness, strength equal bilaterally - Psychiatric Psychiatric: A&O x's 3, appropriate affect - Labs CBC & Chem 7: 09/04/18 06:11 09/04/18 06:11 Labs: Abnormal Lab Results - Last 24 Hours (Table) 09/04/18 09/04/18 Range/Units 06:11 06:11 WBC 2.7 L (3.8-10.6) k/uL RBC 3.38 L (4.30-5.90) m/uL Hgb 10.3 L (13.0-17.5) gm/dL Hct 33.0 L (39.0-53.0) % RDW 15.7 H (11.5-15.5) % Plt Count 95 L (150-450) k/uL Lymphocytes # (Manual) 0.49 L (1.0-4.8) k/uL Chloride 112 H (98-107) mmol/L Carbon Dioxide 19 L (22-30) mmol/L BUN 30 H (9-20) mg/dL Creatinine 1.79 H (0.66-1.25) mg/dL Microbiology - Last 24 Hours (Table) 09/01/18 16:50 Blood Culture - Preliminary Blood No Growth after 48 hours Assessment and Plan Plan: VQ scan report reviewed Echocardiogram report reviewed Chest x-ray: report reviewed CT scan - abdomen: report reviewed CT scan - pelvis: report reviewed Venous US: report reviewed Assessment and Plan Deep vein thrombosis (DVT) of right lower extremity - Positive study for DVT during this admission as noted. - The report mentions that this clot has chronic features such as partial compressibility and thready flow. As noted, the patient did have a femoral DVT in 2013. However Dopplers in 03/11 were negative. Therefore this clot definitely represents a new occurrence compared to 2016. - It is quite possible that it is not acute in relation to this admission. Given the history, this may have formed in late 2018 for example. - The DVT may not be related at all to the patient's acute presentation. Howev er as it represents recurrent thrombosis, even if it is somewhat chronic, it is quite appropriate to place the patient back on anticoagulation. - As the patient's venous thrombolic events have been unprovoked, and recurrent, he will need to be on indefinite anticoagulation as long as he tolerates it well. - He denies any family history, but based on history of recurrence would be a reasonable candidate to consider hypercoagulable testing. He was advised that this would not change his management but may have implications for his family. He is interested in the same, and can have that done as an outpatient. - Heparin is reasonable in the acute setting, and he can be switched over to Xarelto or Eliquis for outpatient anticoagulation. He tolerated Xarelto well in the past. - Hypercoagulable work-up prescription has been place in chart to be given at discharge and he will require remediation to obtain these tests at lab at discharge at outpatient lab prior to leaving hospital. Shortness of breath The patient had low probability of PE on VQ scan. Therefore, as noted, his acute presentation may not be related to his right lower extremity DVT at all. Prior echocardiogram in 03/11 had shown evidence of possible pulmonary hypertension and tricuspid regurg. Consider reevaluation if felt to be clinically indicated by the admitting service as the patient continues to have some shortness of breath. Defer to them in this regard Acute Renal Insufficiency - Nephrology is Following, if renal function continues to be elevated he will need to be switched to eliquis instead of xarelto. - Await Renal Function in am.
--- NOTE | 2018-09-04 16:38 | PN ---
PROGRESS NOTE Patient is seen for followup for acute kidney injury. Creatinine peaked at 2.4 mg/dL from 1.59 on initial admission. Patient was started on gentle IV hydration yesterday. He is complaining of increased swelling in his lower extremities. Blood pressure was low at the time of admission, with systolic blood pressure around 81 mmHg. This has been resolved. Patient was also taking prior to admission, which is now discontinued. On examination today, blood pressure is 134/71, heart rate 57 per minute. He is afebrile. EXAMINATION OF THE HEART: S1 and S2. EXAMINATION OF LUNGS: Bilateral breath sounds are heard. ABDOMEN: Soft, non-tender, obese. Examination of lower extremities shows edema trace bilaterally. MECHANICAL MAINTENANCE WORKER exam is grossly intact. Labs show sodium of 139, potassium 4.3, chloride 112. CO2 is 19, BUN 30, serum creatinine 1.79. ASSESSMENT: 1. Acute kidney injury secondary to hypotension and hypoperfusion, currently improving. May discontinue the IV fluids for now. 2. Chronic kidney disease. Rule out underlying GN. So far serologies are negative. UA did show 2+ protein. We will quantify the urine protein/creatinine ratio. Patient does not have diabetes to explain the proteinuria. 3. History of hypertension; blood pressure currently controlled. Patient was low on initial admission. 4. Fever, now resolved. 5. Right lower extremity deep venous thrombosis, maintained on anticoagulation. 6. Cardiomyopathy; ejection fraction 45% to 50%. 7. Mild tricuspid evidence of severely dilated right ventricle. PLAN: Discontinue IV fluids. Repeat labs in a.m. Possible discharge tomorrow. Patient will need followup as outpatient. We will quantify the proteinuria as well. MMODL / IJN: [id number] /
[2018-09-04] MEDS: TAMSULOSIN 0.4 MG CAP.ER.24H PO SCH (17:46)
--- NOTE | 2018-09-04 17:56 | PN ---
PROGRESS NOTE DATE OF SERVICE: 09/04/2018 REASON FOR FOLLOWUP: Right leg DVT and cellulitis. INTERVAL HISTORY: The patient is currently afebrile. The patient has been breathing comfortably. Patient denies having any chest pain or cough. No abdominal pain. Right leg swelling and redness have improved. No diarrhea with antibiotic therapy. PHYSICAL EXAMINATION: Blood pressure is 134/71 with pulse of 57, temperature 98.5. He is 99% on room air. General description is an elderly male lying in bed in no distress. RESPIRATORY SYSTEM: Unlabored breathing. Clear to auscultation anteriorly. HEART: S1, S2. Regular rate and rhythm. ABDOMEN: Soft. No tenderness. Right leg swelling and redness have almost resolved. LABS: Hemoglobin is 10.3, white count 2.7, BUN of 30, creatinine 1.79. DIAGNOSTIC IMPRESSION AND PLAN: Patient with high fever. Source is more likely right lower extremity DVT plus or minus a component of cellulitis, currently responding to the Rocephin. Transition to a short course of oral Ceftin on discharge. Continue with supportive care. MMODL / IJN: [id number] /
[2018-09-05] MEDS: RIVAROXABAN 15 MG TAB PO SCH (06:17)
[2018-09-05 07:37] LABS: Anisocytosis Slight; HCT 33.9 % (39.0-53.0); HGB 10.9 gm/dL (13.0-17.5); Hypochromasia Slight; MCH 30.5 pg (25.0-35.0); MCV 95.4 fL (80.0-100.0); Mean Platelet Volume 8.1; Platelet Count 110 k/uL (150-450); RBC 3.56 m/uL (4.30-5.90); RDW 16.5 % (11.5-15.5); WBC 2.4 k/uL (3.8-10.6)
[2018-09-05 07:41] LABS: Albumin 3.2 g/dL (3.5-5.0); Calcium 8.8 mg/dL (8.4-10.2); Potassium 4.4 mmol/L (3.5-5.1); Total Bilirubin 0.4 mg/dL (0.2-1.3); Total Protein 6.1 g/dL (6.3-8.2)
[2018-09-05] MEDS: ASCORBIC ACID 500 MG TAB PO SCH (08:17)
[2018-09-05] MEDS: CHOLECALCIFEROL 1,000 UNIT TAB PO SCH (08:17)
[2018-09-05] MEDS: MULTIVITAMINS, THERA 1 EACH TAB PO SCH (08:17)
[2018-09-05] MEDS: FAMOTIDINE 20 MG TAB PO SCH (08:17)
[2018-09-05 08:23] LABS: Eosinophils # (M) 0.02 k/uL (0-0.7); Lymphocytes # (M) 0.34 k/uL (1.0-4.8); Monocytes # (M) 0.31 k/uL (0-1.0); Neutrophils # (M) 1.73 k/uL (1.3-7.7); Neutrophils % (M) 72 %; Nucleated Red Blood Cells 0 /100 WBC (0-0); Total Cells Counted 100
[2018-09-05] MEDS: SODIUM CHLORIDE 0.9% 1,000 ML IV SCH (08:35)
--- NOTE | 2018-09-05 12:53 | PN ---
PROGRESS NOTE DATE OF SERVICE: 09/05/2018 REASON FOR FOLLOWUP: Fever, source likely right lower extremity DVT and cellulitis. INTERVAL HISTORY: The patient is currently afebrile for more than 48 hours on. The patient has been breathing comfortably. Denies having any chest pain. No shortness of breath, no cough, no abdominal pain. The right leg swelling and redness has improved. PHYSICAL EXAMINATION: Blood pressure 145/77 with a pulse of 51, temperature is 97.6, he is 98% on room air. General description is an elderly male, up in the chair in no distress. RESPIRATORY SYSTEM: Unlabored breathing. Clear to auscultation anteriorly. HEART: S1, S2. Regular rate and rhythm/ ABDOMEN: Soft, no tenderness. EXTREMITIES: Right leg swelling and redness has improved. No open wound or any drainage. LABS: Hemoglobin is 10 1, white count of 2.4, BUN of 26, creatinine 1.62. Blood and urine cultures have been negative. DIAGNOSTIC IMPRESSION AND PLAN: Patient admitted to the hospital with fever and weakness. Source is likely a combination of right lower extremity DVT and cellulitis. The patient responded to aspirin. Will give a short course of oral Keflex on discharge to finish a course of therapy. Continue supportive care. MMODL / IJN: [id number] /
[2018-09-05 14:01] VITALS: BP 156/91; PULSE 57; RESP 18; TEMP 97.7
[2018-09-05 14:14] LABS: C-ANCA <1:20 Titer (<1:20); P-ANCA <1:20 Titer (<1:20)
[2018-09-05] MEDS ORDERED: CEPHALEXIN 500 MG CAP PO STA (14:15)
[2018-09-05] MEDS ORDERED: APIXABAN 5 MG TAB PO SCH (21:00)
--- NOTE | 2018-09-05 21:19 | P.DS ---
Providers Date of admission: 09/01/18 19:10 Attending physician: Lazaro Guerin Consults: 09/01/18 22:49 Consult Physician Routine Consulting Provider: Edgar Mendiola Consult Reason/Comments: dvt Do you want consulting provider notified?: Yes 09/02/18 00:10 Consult Physician Routine Consulting Provider: Carlos Johnson Consult Reason/Comments: sepsis Do you want consulting provider notified?: Yes 09/02/18 13:23 Consult Physician Routine Consulting Provider: Franko Dias Consult Reason/Comments: creatnine increased Do you want consulting provider notified?: Yes Primary care physician: Laura [facility] Hospital Course: Diagnoses: Acute right leg deep venous thrombosis Fever, possible sepsis. Enlarged right ventricle with ejection fraction 45-50% and moderate LVH Possible pulmonary hypertension disease Acute kidney injury, improving Chronic kidney disease, stage III History of coronary artery disease History of chronic heart failure Hyperlipidemia Osteoarthritis Sleep apnea on CPAP/BiPAP History of skin cancer Hospital course: This is a pleasant 78 years old male with past medical history of coronary artery disease, heart failure, deep venous thrombosis, hyperlipidemia, osteoarthritis, sleep apnea on CPAP/BiPAP, status post stent placement, history of skin cancer. He presents with right lower extremity swelling and tenderness, patient found to have acute DVT venous thrombosis and cellulitis. Patient was treated with heparin drip first and they tone is wished to oral anticoagulants, also he received ceftriaxone and his fever and leukocytosis present on admission are resolved. His been afebrile for the last few days. His leukocytosis improved and currently his WBC is 2.4K. Hemoglobin stable. He has acute kidney injury on admission, patient received parenteral hydration and his Creatinine on discharge is 1.6, which is close to his baseline. Initial patient was started on xarelto , which is later on changed to Eliquis because of his chronic kidney disease. Many of discharge patient denies any respiratory symptoms, no dyspnea or coughing. Also he denies chest pain. His diarrhea has improved significantly and this morning he told me he has normal bowel movements. His right leg pain and symptoms are significantly improved as well. Patient has been followed by several consultants, including nephrology and hematology and infectious disease teams. V/Q scan showed low probability for pulmonary embolism. Echocardiogram showed enlarged right ventricle, patient may need pulmonary evaluation which can be done as an outpatient. Patient stated that before his seeing Dr. Aguilar from pulmonary, also couple years ago he was referred to [place] [facility] for pulmonary hypertension and right heart disease. Patient and will be discharged on Keflex as per ID team re commendation. Patient was cleared for discharge by nephrology and hematology and infectious disease teams Problems and management plan were discussed with the patient and he verbalized understanding and acceptance Patient was found stable and can be discharged home however he needs follow-up as an outpatient. pt agrees with appointment with pcp and its timing. staff contacted hematology and nephrology offices and informed they will contact the pt directly, while office is closed today. pt was instructed to f/u with hematology , nephrology and pulmonology clinic as directed in 1-2 wks and he agrees to call and make appointments , at bed side and she is aware as well importance of adherence to Eliquis is discussed with pt , risks including but not limited to recurrent DVT , PE, and/or are explained and he verbalized understanding and acceptance Gen: patient is a AAOx3, no distress CVS: S1-S2, RRR, no murmur Lungs: B/L CTA, no wheezing Abdomen: soft, no distention, no tenderness, positive bowel sounds Extremity: no leg edema or induration Time spent more than 35 minutes Patient Condition at Discharge: Fair Plan - Discharge Summary Discharge Rx Participant: No New Discharge Prescriptions: New Apixaban [Eliquis] 5 mg PO DIRECTED #30 tablet Cephalexin [Keflex] 500 mg PO Q8HR 7 Days #21 cap Famotidine [Pepcid] 20 mg PO DAILY #7 tab Acetaminophen Tab [Tylenol] 650 mg PO Q6HR PRN #20 tab PRN Reason: Mild Pain Or Fever > 100.5 Continue Florassist-Nasal 1 tab PO DAILY [place] 500 mg PO DAILY Glucosamine/Chondr Saleh A Sod [Osteo Bi-Flex Caplet] 1 tab PO DAILY Cholecalciferol [Vitamin D3 (25 Mcg = 1000 Iu)] 5,000 unit PO DAILY Advanced Nerve Support 1 tab PO DAILY Multivitamins, Thera [Multivitamin (formulary)] 1 tab PO DAILY Ascorbic Acid [Vitamin C] 1,000 mg PO DAILY Discontinued Naproxen Sodium [Aleve] 440 mg PO Q12HR PRN PRN Reason: Pain Discharge Medication List Advanced Nerve Support 1 tab PO DAILY 09/01/18 [History] Ascorbic Acid [Vitamin C] 1,000 mg PO DAILY 09/01/18 [History] Cholecalciferol [Vitamin D3 (25 Mcg = 1000 Iu)] 5,000 unit PO DAILY 09/01/18 [History] Florassist-Nasal 1 tab PO DAILY 09/01/18 [History] Glucosamine/Chondr Saleh A Sod [Osteo Bi-Flex Caplet] 1 tab PO DAILY 09/01/18 [History] Multivitamins, Thera [Multivitamin (formulary)] 1 tab PO DAILY 09/01/18 [History] [place] 500 mg PO DAILY 09/01/18 [History] Acetaminophen Tab [Tylenol] 650 mg PO Q6HR PRN #20 tab 09/05/18 [Rx] Apixaban [Eliquis] 5 mg PO DIRECTED #30 tablet 09/05/18 [Rx] Cephalexin [Keflex] 500 mg PO Q8HR 7 Days #21 cap 09/05/18 [Rx] Famotidine [Pepcid] 20 mg PO DAILY #7 tab 09/05/18 [Rx] Follow up Appointment(s)/Referral(s): Edgar Mendiola MD [STAFF PHYSICIAN] - 2 Weeks (Spoke to professional programmer analyst. Office will call with appointment time) Nely Lamas MD [STAFF PHYSICIAN] - 1 Week (Spoke to professional programmer analyst. Office will call with appointment time) Meliton Aguilar MD [STAFF PHYSICIAN] - 2 Weeks (Please call to schedule appointment) Laura Talbert MD [Primary Care Provider] - 09/07/18 11:15 am (Monday with WET WHEELER) Patient Instructions/Handouts: Acute Kidney Injury (DC), Deep Vein Thrombosis ( DC), Safe Use of Anticoagulants (DC) Activity/Diet/Wound Care/Special Instructions: Pts 30 day copay for eliquis is $30 cardiac diet activity is limited till you see your doctor Discharge Disposition: HOME SELF-CARE
--- NOTE | 2018-09-05 23:17 | PN ---
PROGRESS NOTE Patient is seen for followup for acute kidney injury. His renal function has improved. We discontinued the IV fluids yesterday. Serum creatinine continues to improve. The patient was hypotensive on initial admission. Serum creatinine had peaked at 2.4 mg/dL. PHYSICAL EXAMINATION: On examination today, patient is comfortable. Blood pressure this morning was 145/77, heart rate of 61 per minute. Patient is afebrile. Examination of the heart S1, S2. Examination of the lungs, bilateral breath sounds are heard. Abdomen is soft, nontender. Examination of lower extremities shows trace edema bilaterally. LAB: Show sodium 141, potassium 4.4, BUN 26, serum creatinine 1.62, hemoglobin 10.9 g/dL. ASSESSMENT: 1. Acute kidney injury secondary to hypotension and hypoperfusion, currently improving. 2. Right lower extremity deep vein thrombosis, maintained on anticoagulation. 3. History of pulmonary embolism. 4. Chronic kidney disease with evidence of proteinuria, nonnephrotic. This will need further workup. Serologies this admission are all negative. There was no evidence of benzos, protein in the urine. PLAN: The patient will need followup as outpatient. May continue with the Eliquis. Avoid nonsteroidal anti-inflammatory agents. MMODL / IJN: [id number] /
== END 2018-09-05 18:20 | disposition home or self-care (01) | DRG 871 ==
LOC: EC 16:11 → 3SCARD 19:10
PROVIDERS: ADMIT Hospitalist; ATTEND Hospitalist
DX: A41.9 Sepsis, unspecified organism (principal); N17.0 Acute kidney failure with tubular necrosis; I82.411 Acute embolism and thrombosis of right femoral vein; I13.0 Hypertensive heart and chronic kidney disease with heart failure and stage 1 through stage 4 chronic kidney disease, or unspecified chronic kidney disease; I42.9 Cardiomyopathy, unspecified; L03.115 Cellulitis of right lower limb; D64.9 Anemia, unspecified; D69.6 Thrombocytopenia, unspecified; E66.9 Obesity, unspecified; E78.5 Hyperlipidemia, unspecified; E86.0 Dehydration; G47.33 Obstructive sleep apnea (adult) (pediatric); I25.10 Atherosclerotic heart disease of native coronary artery without angina pectoris; Z86.711 Personal history of pulmonary embolism; I27.20 Pulmonary hypertension, unspecified; I50.9 Heart failure, unspecified; Z66 Do not resuscitate; K59.00 Constipation, unspecified; M19.90 Unspecified osteoarthritis, unspecified site; N18.3 Chronic kidney disease, stage 3 (moderate); Z68.35 Body mass index [BMI] 35.0-35.9, adult; Z91.81 History of falling; Z82.49 Family history of ischemic heart disease and other diseases of the circulatory system; Z85.828 Personal history of other malignant neoplasm of skin; Z86.718 Personal history of other venous thrombosis and embolism; Z86.79 Personal history of other diseases of the circulatory system; Z95.5 Presence of coronary angioplasty implant and graft; Z88.1 Allergy status to other antibiotic agents; Z88.0 Allergy status to penicillin; Z88.2 Allergy status to sulfonamides; Z99.89 Dependence on other enabling machines and devices; T39.395A Adverse effect of other nonsteroidal anti-inflammatory drugs [NSAID], initial encounter; I07.1 Rheumatic tricuspid insufficiency
CPT/HCPCS: 36415; 71045; 71046; 74176; 78582; 80048; 80053; 81001; 82272; 82550; 82570; 83605; 83735; 83880; 84156; 84484; 85025; 85379; 85610; 85730; 86038; 86160; 86225; 86255; 86334; 86335; 87040; 87086; 93005; 93306; 94760; 96361; 96365; 96375; 96376; 99291